=== PATIENT | female | born 1940 | race Caucasian/White ===

== ENCOUNTER 2017-06-21 14:16 | Observation (INO) ==
[2017-06-21] MEDS ORDERED: 0.9 % Sodium Chloride 1,000 ML IVC ONE (15:17)
[2017-06-21] MEDS ORDERED: *HR* FentaNYL (PF) 100 MCG/2 ML VIAL IVP ONE ×2 (15:18→17:02)
[2017-06-21] MEDS ORDERED: Ondansetron 4 MG/2 ML VIAL IVP ONE (15:19)
[2017-06-21] MEDS ORDERED: Ondansetron 4 MG/2 ML VIAL ONE (15:24)
--- NOTE | 2017-06-21 15:45 | Emergency Department Note ---
Disposition Clinical Impression: Weakness Fall Qualifiers: Encounter type: initial encounter Qualified Code(s): W19.XXXA - Unspecified fall, initial encounter Disposition: Admitted As Inpatient Condition: Fair Time of Disposition: 17:41 General Adult HPI - General Chief complaint: ED Fall Stated complaint: Fall Time Seen by Provider: 06/21/17 15:09 Source: patient, family Mode of arrival: wheelchair Limitations: no limitations Nursing Notes Reviewed: Yes Vital Signs Reviewed: Yes - History of Present Illness HPI Narrative: Patient is a 77-year-old female with a past medical history of atrial fibrillation with pacemaker, stroke, DVT, hypertension, hyperlipidemia, diabetes presenting to the emergency department for the complaint of a fall and double vision. The patient states that prior to arrival to the emergency department she was walking into a steak house and there was uneven pavement and she fell backwards onto her left side. She denies any symptoms prior to the fall and states that she did not lose consciousness. She denies head or neck injury. She states after the fall she went into the restaurant and she felt weaker than normal and also experienced double vision. When asked about her double vision the patient states that this sometimes a chronic issue and it comes and goes. At this time her main pain is in her left posterior back around her thoracic and lumbar region. The patient is on Eliquis. Pain Scale: 10 - Related Data Home Medications Medication Instructions Recorded Confirmed Apixaban [Eliquis] 5 mg PO BID 06/21/17 06/21/17 Cholecalciferol (D-3) [Vitamin D] 1,000 unit PO DAILY 06/21/17 06/21/17 Donepezil [Aricept] 10 mg PO HS 06/21/17 06/21/17 Ezetimibe [Ezetimibe] 10 mg PO DAILY 06/21/17 06/21/17 Furosemide [Lasix] 20 mg PO DAILY PRN 06/21/17 06/21/17 Gabapentin [Neurontin] 400 mg PO QPM 06/21/17 06/21/17 Gabapentin [Neurontin] 800 mg PO QAM 06/21/17 06/21/17 Glimepiride [Amaryl] 4 mg PO QAM 06/21/17 06/21/17 LORazepam [Ativan] 0.5 mg PO DAILY PRN 06/21/17 06/21/17 LORazepam [Ativan] 0.5 mg PO QAM 06/21/17 06/21/17 Lisinopril [Lisinopril] 2.5 mg PO DAILY 06/21/17 06/21/17 Metoprolol Tartrate [Metoprolol 50 mg PO BID 06/21/17 06/21/17 Tartrate] Naproxen [Naprosyn] 250 mg PO BID PRN 06/21/17 06/21/17 Ranitidine HCl [Zantac] 150 mg PO DAILY PRN 06/21/17 06/21/17 Rosuvastatin Calcium [Rosuvastatin 40 mg PO HS 06/21/17 06/21/17 Calcium] Sertraline [Zoloft] 100 mg PO DAILY 06/21/17 06/21/17 Sitagliptin Phosphate [Januvia] 50 mg PO DAILY 06/21/17 06/21/17 Venlafaxine HCl [Venlafaxine HCl 75 mg PO DAILY 06/21/17 06/21/17 ER] Verapamil HCl 360 mg PO DAILY 06/21/17 Xyzal 5 mg PO DAILY 06/21/17 06/21/17 Allergies Allergy/AdvReac Type Severity Reaction Status Date / Time Sulfa (Sulfonamide Allergy Hives Verified 06/21/17 14:51 Antibiotics) All systems ED: reviewed and negative except as stated. Review of Systems: As Per HPI Constitutional: Reports: other (Feeling fatigued a sports/P fall). Denies: fever, weakness Eyes: Denies: eye pain, eye discharge, vision change Cardiovascular: Denies: chest pain, palpitations, dyspnea on exertion Respiratory: Denies: cough, dyspnea Gastrointestinal: Denies: abdominal pain, nausea, vomiting, diarrhea Genitourinary: Denies: urgency, dysuria Musculoskeletal: Reports: other (Pain over the left posterior rib cage in the thoracic and lumbar region). Denies: back pain, neck pain Integumentary: Denies: rash, lesions Neurological: Reports: other (Blurred vision). Denies: headache, weakness, numbness Hematological/Lymphatic: Denies: easy bleeding Past Medical History - Past Medical History Attestation: Yes The following information was validated with the patient. Medical history: Reports: atrial fibrillation, CVA, DVT, diabetes, GERD, hyperlipidemia, hypertension Psychiatric history: Reports: no psych history - Social History Smoking Status: Never smoker Smokeless Tobacco Status: No Alcohol use: Reports: none Drug use: Reports: none Physical Exam Patient is a 77-year-old female in no acute distress when at rest. She is AO 3. - General Limitations: no limitations General appearance: alert, in no apparent distress - Head Head exam: atraumatic, normocephalic, normal inspection - Eye Eye exam: Present: normal appearance, PERRL, EOMI - ENT ENT exam: normal exam, normal oropharynx, mucous membranes dry - Neck Neck exam: Present: normal inspection, full ROM, trachea midline - Chest Chest inspection: Present: normal inspection, symmetric chest wall rise, tenderness (To the left posterior rib cage over the thoracic region. Possible crepitance felt. ). Absent: rash - Respiratory Respiratory exam: Present: normal lung sounds bilaterally. Absent: respiratory distress, wheezes, stridor, accessory muscle use - Cardiovascular Cardiovascular exam: Present: regular rate, normal rhythm, normal heart sounds, +S1, +S2 - Abdominal Exam Abdominal exam: Present: soft, Non-Tender, normal bowel sounds - Extremities Exam Extremities exam: Present: full ROM, normal capillary refill, pedal edema ( Bilateral 1+ pitting edema). Absent: tenderness - Expanded Lower Extremity Exam Hip/Pelvis exam: Present: normal inspection, full ROM. Absent: tenderness, ecchymosis, deformity Upper leg exam: Present: normal inspection, full ROM Knee exam: Present: normal inspection, full ROM Lower leg exam: Present: normal inspection, full ROM Ankle exam: Present: normal inspection, full ROM Foot/toe exam: Present: normal inspection, full ROM Neurovascular/Tendon exam: Present: normal capillary refill. Absent: pulse deficit, motor deficit, sensory deficit - Back Exam Back exam: Present: normal inspection, full ROM. Absent: tenderness - Neurological Exam Neurological exam: Present: alert, oriented X3 - Psychiatric Psychiatric exam: Present: normal affect, normal mood - Skin Skin exam: Present: warm, dry, intact, normal color Course Course Narrative: Patient's presenting for a fall she had a CT scan done of her head and neck chest and abdomen. The CT resulted showing 2 rib fractures on the left posterior lateral side that were nondisplaced. Otherwise patient's lab work was unremarkable except for she did have some acute kidney injury. Discussed with the patient and patient's family admitting her for further evaluation and workup since she has had ongoing weakness, family states that prefer she be admitted. Otherwise cardiac workup was performed and that was essentially negative. Vital Signs Temperature 98.6 F 06/21/17 14:49 Pulse Rate 65 06/21/17 14:49 Respiratory Rate 18 06/21/17 14:49 Blood Pressure 82/52 06/21/17 14:49 O2 Sat by Pulse Oximetry 94 06/21/17 14:49 Temperature 98.2 F 06/22/17 07:20 Pulse Rate 91 06/22/17 07:20 Respiratory Rate 16 06/22/17 07:20 Blood Pressure 120/75 06/22/17 07:20 O2 Sat by Pulse Oximetry 98 06/22/17 07:20 Oxygen Delivery Oxygen Delivery Nasal Cannula Medical Decision Making - Medical Records Medical records reviewed: Yes I reviewed the patient's medical records. - Lab Data Lab results reviewed: Yes I reviewed the patient's lab results. Result diagrams: 06/22/17 03:27 06/22/17 03:27 Lab Results 06/21/17 06/21/17 06/21/17 Range/Units 16:33 16:33 16:33 WBC 6.0 (4.3-11.1) K/mcL RBC 4.50 (3.82-4.97) M/mcL Hgb 12.9 (11.5-15.4) g/dL Hct 39.9 (35.3-44.9) % MCV 88.7 (83.0-100.0) fL MCH 28.7 (28.0-33.3) pg MCHC 32.3 (31.6-35.5) g/dL RDW 14.1 (11.5-14.5) % Plt Count 172 (140-400) K/mcL MPV 11.5 (9.4-12.4) fL Immature Gran % 0.2 (0-4) % Seg Neutrophils % 71.5 % Lymphocytes % 19.8 % Monocytes % 7.0 % Eosinophils % 1.0 % Basophils % 0.5 % Neutrophils # 4.3 (1.6-8.9) K/mcL Lymphocytes # 1.2 (0.6-4.6) K/mcL Monocytes # 0.4 (0.0-1.3) K/mcL Eosinophils # 0.1 (0.0-0.6) K/mcL Basophils # 0.0 (0.0-0.2) K/mcL Sodium 136 (136-145) mEq/L Potassium 4.1 (3.5-5.1) mEq/L Chloride 103 (98-107) mEq/L Carbon Dioxide 28 (23-29) mEq/L BUN 20 (8-23) mg/dL Creatinine 1.25 H (0.60-1.20) mg/dL Est GFR ( Amer) 50 L (> 60) Est GFR (Non-Af Amer) 42 L (> 60) BUN/Creatinine Ratio 16 (6-26) Glucose 157 H (70-105) mg/dL Calculated Osmolality 288 (280-300) Calcium 8.9 (8.6-10.3) mg/dL Troponin I < 0.03 (< 0.04) ng/mL TSH 1.515 (0.340-5.600) mcIU/mL - Radiology Data Radiology results reviewed: Yes I reviewed the patient's radiology results. Abdomen/Pelvis CTA 06/21/17 15:11 IMPRESSION: 1. No evidence of acute injury in the abdomen or pelvis. 2. Unchanged dilation of the common bile duct, likely related to prior cholecystectomy. 3. Scattered pneumobilia is present which has been present on prior exams and could be related to a sphincterotomy. 4. Mild diverticulosis. 5. Coronary atherosclerosis. D/ / 06/21/2017 16:25:57 Panfilo Bright MD / [facility] Interpreting Provider: Panfilo Bright MD Cervical Spine CT 06/21/17 15:11 IMPRESSION: No acute abnormality of the cervical spine. Mild spondylosis at C5-C6. D/ / Chato Jackman MD / Chato Jackman MD Interpreting Provider: Chato Jackman MD Chest CTA 06/21/17 15:11 IMPRESSION: 1. Negative evaluation for acute aortic injury. 2. Posterior left 8th and 10th megaly displaced rib fractures. 3. Please refer to dedicated CT angiography of the abdomen and pelvis for further findings. D/ / Tad Quinn / Tda Quinn Interpreting Provider: Tad Quinn Head CT 06/21/17 15:11 IMPRESSION: No acute intracranial abnormality with chronic ischemic changes as described. D/ / Giselle Perez MD / Giselle Perez MD Interpreting Provider: Giselle Perez MD - EKG Data EKG #1 EKG attestation: Yes I reviewed and interpreted this EKG. EKG results narrative: Patient EKG done at 16:29 shows atrial fibrillation with aberrant conduction. Rate of 66 bpm. Normal axis. No signs of ST elevation or depressions or Q waves present. Interpretation: nonspecific ST-T wave changes Attestation Statement - Attestation Attestation: I examined this patient and my medical decision-making was reviewed with the Resident Physician. I agree with the documented findings, disposition and treatment plan as described except to the extent set forth below. 77 yo F presents after a fall. Unclear whether it was near syncopal or mechanical however pt is hypotensive upon arrival. CT head, Cspine do not reveal acute fracture or ICH. Pt has rib fractures present on CTA chest but no other surgical pathology found. +mild elevation of creatinine. Pt will be admitted for near syncopal event.
[2017-06-21 17:18] LABS: Basophils % 0.5 %; Eosinophils # 0.1 K/mcL (0.0-0.6); Hematocrit 39.9 % (35.3-44.9); Hemoglobin 12.9 g/dL (11.5-15.4); Immature Granulocytes % 0.2 % (0-4); Lymphocytes # 1.2 K/mcL (0.6-4.6); Lymphocytes % 19.8 %; Mean Corpuscular HGB Conc 32.3 g/dL (31.6-35.5); Mean Corpuscular Hemoglobin 28.7 pg (28.0-33.3); Mean Corpuscular Volume 88.7 fL (83.0-100.0); Mean Platelet Volume 11.5 fL (9.4-12.4); Monocytes # 0.4 K/mcL (0.0-1.3); Neutrophils # 4.3 K/mcL (1.6-8.9); Platelet Count 172 K/mcL (140-400); Red Cell Distribution Width 14.1 % (11.5-14.5); Segmented Neutrophils % 71.5 %
[2017-06-21 17:20] LABS: Calcium 8.9 mg/dL (8.6-10.3); Potassium 4.1 mEq/L (3.5-5.1)
[2017-06-21 17:33] LABS: Thyroid Stimulating Hormone 1.515 mcIU/mL (0.340-5.600)
[2017-06-21] MEDS ORDERED: Ondansetron 4 MG/2 ML VIAL IVP PRN (19:14)
[2017-06-21] MEDS ORDERED: Naloxone 0.4 MG/ML INJ IVP PRN (19:16)
[2017-06-21] MEDS ORDERED: 0.9 % Sodium Chloride 1,000 ML IVC SCH (19:30)
--- NOTE | 2017-06-21 19:33 | Internal Med History&Physical ---
<Ramírez Alba - Last Filed: 06/21/17 21:52> Date of Encounter: 06/21/17 Time of Encounter: 19:31 Assessment and Plan (1) Fall Current visit: Yes Status: Acute The patient reports she fell this afternoon while out dining at a restaurant. She denies any syncope or near syncope. She denies hitting her head. Upon arrival to [facility] ED she was found to be hypotensive. Hemodynamic status improved with a 2 L fluid bolus. It appears she may have been a fluid depleted. -0.9% normal saline at 75 mL per hour 2 L -Orthostatic vitals -Up with assist only -CK now -[facility] ED, BMP in the a.m. -Continuous telemetry, SPO2 monitoring Qualifiers: Encounter type: initial encounter Qualified Code(s): W19.XXXA - Unspecified fall, initial encounter (2) Left rib fracture Current visit: Yes Status: Acute Fracture left posterior 8-10 ribs status post fall this afternoon. Patient continuing to report pain. -Pain management with oxycodone Qualifiers: Qualified Code(s): S22.32XA - Fracture of one rib, left side, initial encounter for closed fracture (3) A-fib Current visit: Yes Status: Acute A-fib per EKG rate control. RRR, S1, S2 per auscultation with a systolic murmur. Family to bring medication list. Patient unsure of home medications. Will restart rate control meds as list is updated Qualifiers: Atrial fibrillation type: unspecified Qualified Code(s): I48.91 - Unspecified atrial fibrillation (4) Diabetes Current visit: Yes Status: Acute AC/HS accucheck Takes oral hypoglycemics and is at Risk for hypoglycemia should she develop an KAYLA s/p fall, holding insulin for now should she become hyperglycemic plan to start low sliding scale insulin coverage. -diabetic diet -D5 0.9% saline at 75ml/hr Qualifiers: Diabetes mellitus type: type 2 Diabetes mellitus fdc insulin use: unspecified intermediate manager insulin use status Diabetes mellitus complication status : with unspecified complications Qualified Code(s): E11.8 - Type 2 diabetes mellitus with unspecified complications (5) Weakness Current visit: Yes Status: Acute s/p fall this afternoon. She is reporting pain in left posterior ribs 8-10 (6) DVT prophylaxis Current visit: Yes Status: Acute Resume [facility] Internal Medicine - H&P: HPI Chief complaint: fall today resulting in rib fracture, pain, volume depleted Admitted From: Home Plans for Post Hospital Care: Home History of present illness: Ms. Koo is a 77 year old female with a PMH of atrial fibrillation, CVA, DVT, diabetes, GERD, hyperlipidemia, and hypertension. She presents to [facility] ED today status post fall while out eating lunch. The patient reports that she was walking and lost her balance and fell backwards and on her left side. The only symptoms she admits prior to the fall are mild blurred vision but she reports has having this is chronic. She denies any generalized weakness, chest pain, shortness of breath, tachycardia, palpitations, syncope. She denies hitting her head. She is on eliquis for atrial fibrillation. She states that she went into the restaurant to eat after the fall of began to feel weaker and decided to come to [facility] ED. Upon presentation to the emergency department was complaining of left posterior back pain in the thoracolumbar region was found to have rib fractures via CTA of the chest. Additionally, she was noted to be hypotensive on arrival. Hemodynamic status improved with a saline bolus. She appears to be volume depleted. Past Med Surg Social Fam HX - Past Medical History Medical history: atrial fibrillation, CVA, DVT, diabetes, GERD, hyperlipidemia, hypertension Psychiatric history: no psych history - Social History Smoking Status: Never smoker Smokeless Tobacco Status: No Alcohol use: none Drug use: none - Family History Father Cause of : Heart attack Hx Family Cardiac Disorders: Yes Mother Living Status: Cause of : Heart attack Hx Family Cardiac Disorders: Yes - Additional Family History Additional family history: Noncontributory Internal Medicine - H&P: Meds Apixaban [Eliquis] 5 mg PO BID 06/21/17 [History] Cholecalciferol (D-3) [Vitamin D] 1,000 unit PO DAILY 06/21/17 [History] Donepezil [Aricept] 10 mg PO HS 06/21/17 [History] Ezetimibe [Ezetimibe] 10 mg PO DAILY 06/21/17 [History] Furosemide [Lasix] 20 mg PO DAILY PRN 06/21/17 [History] Gabapentin [Neurontin] 400 mg PO QPM 06/21/17 [History] Gabapentin [Neurontin] 800 mg PO QAM 06/21/17 [History] Glimepiride [Amaryl] 4 mg PO QAM 06/21/17 [History] LORazepam [Ativan] 0.5 mg PO DAILY PRN 06/21/17 [History] LORazepam [Ativan] 0.5 mg PO QAM 06/21/17 [History] Lisinopril [Lisinopril] 2.5 mg PO DAILY 06/21/17 [History] Metoprolol Tartrate [Metoprolol Tartrate] 50 mg PO BID 06/21/17 [History] Naproxen [Naprosyn] 250 mg PO BID PRN 06/21/17 [History] Ranitidine HCl [Zantac] 150 mg PO DAILY PRN 06/21/17 [History] Rosuvastatin Calcium [Rosuvastatin Calcium] 40 mg PO HS 06/21/17 [History] Sertraline [Zoloft] 100 mg PO DAILY 06/21/17 [History] Sitagliptin Phosphate [Januvia] 50 mg PO DAILY 06/21/17 [History] Venlafaxine HCl [Venlafaxine HCl ER] 75 mg PO DAILY 06/21/17 [History] Verapamil HCl 360 mg PO DAILY 06/21/17 [History] Xyzal 5 mg PO DAILY 06/21/17 [History] 3 Allergy/AdvReac Type Severity Reaction Status Date / Time Sulfa (Sulfonamide Allergy Hives Verified 06/21/17 14:51 Antibiotics) All Systems PM: A 10-system review of systems was performed and is negative for pertinent findings except as documented above in the HPI. - Constitutional Constitutional: falls - EENT Eyes: blurry vision (reports intermittet blurred vision that is chronic) - Cardiovascular Cardiovascular ROS IM: no chest pain, no diaphoresis, no dyspnea, no irregular heart rhythm, no lightheadedness, no palpitations, no syncope - Respiratory Respiratory: no cough, no dyspnea, no wheezing, no excessive phlegm production - Gastrointestinal Gastrointestinal: no abdominal pain, no diarrhea, no hematemesis, no hematochezia, no melena, no nausea, no vomiting - Genitourinary Genitourinary: no change in urinary stream, no dysuria, no flank pain, no hematuria - Musculoskeletal Additional comments: muscle and rib pain - Integumentary Additional comments: bruising on left palm - Neurological Neurological ROS: no abnormal gait, no dizziness, no numbness, no tingling, no vertigo, no weakness Additional comments: falls - Constitutional Vitals: Temp Pulse Resp BP Pulse Ox 98.1 F 67 18 130/84 98 06/21/17 19:01 06/21/17 19:01 06/21/17 19:01 06/21/17 19:01 06/21/17 19:01 General appearance: Present: cooperative, A&O X 3, no acute distress, answers questions appropriately - Head Head exam: Present: atraumatic, normocephalic - Eye Eye exam: Present: PERRL Pupils: Present: PERRL - Neck Neck exam general surgery: Present: supple, trachea midline. Absent: lymphadenopathy - Respiratory Respiratory exam: Present: CTAB. Absent: respiratory distress, rhonchi, wheezes , tachypnea - Cardiovascular Cardiovascular exam: Present: RRR, +S1, +S2. Absent: diastolic murmur, gallop, rubs, systolic murmur - GI/Abdominal GI/Abdominal exam: Present: normal bowel sounds, soft, no peritoneal signs. Absent: distended, tenderness - Extremities Exam Extremities exam: Present: warm, radial pulses palpable and symmetrical. Absent : calf tenderness, cyanotic, pedal edema - Back Exam Back exam: Present: tenderness. Absent: normal inspection Additional comments: Tenderness along left posterior 8-10 ribs and extending s/p fall. CT shows fractures in this area as well. See imaging notes - Neurological Exam Neurological exam: Present: alert, oriented X3. Absent: facial droop, speech deficit - Skin Skin exam: Present: dry, intact Additional comments: bruising on left palm s/p fall Internal Med - H&P Results - Labs CBC & Chem 7: 06/21/17 16:33 06/21/17 16:33 - EKG Data -: EKG Interpreted by Myself - EKG Data EKG comments: 06/21/17 19:56 a-fib - Impressions Impressions Abdomen/Pelvis CTA 06/21/17 15:11 IMPRESSION: 1. No evidence of acute injury in the abdomen or pelvis. 2. Unchanged dilation of the common bile duct, likely related to prior cholecystectomy. 3. Scattered pneumobilia is present which has been present on prior exams and could be related to a sphincterotomy. 4. Mild diverticulosis. 5. Coronary atherosclerosis. D/ / 06/21/2017 16:25:57 Panfilo Bright MD / [facility] Interpreting Provider: Panfilo Bright MD Cervical Spine CT 06/21/17 15:11 IMPRESSION: No acute abnormality of the cervical spine. Mild spondylosis at C5-C6. D/ / Chato Jackman MD / Chato Jackman MD Interpreting Provider: Chato Jackman MD Chest CTA 06/21/17 15:11 IMPRESSION: 1. Negative evaluation for acute aortic injury. 2. Posterior left 8th and 10th megaly displaced rib fractures. 3. Please refer to dedicated CT angiography of the abdomen and pelvis for further findings. D/ / Tad Quinn / Tad Quinn Interpreting Provider: Tad Quinn Head CT 06/21/17 15:11 IMPRESSION: No acute intracranial abnormality with chronic ischemic changes as described. D/ / Giselle Perez MD / Giselle Perez MD Interpreting Provider: Giselle Perez MD - VTE Reasons for not Prescribing Prophylaxis: Not indicated-Anticoagulated or INR therapeutic <Ej Kevin - Last Filed: 06/21/17 23:35> Date of Encounter: 06/21/17 Time of Encounter: 20:00 - Constitutional Vitals: Temp Pulse Resp BP Pulse Ox 98.1 F 67 18 130/84 98 06/21/17 19:01 06/21/17 19:01 06/21/17 19:01 06/21/17 19:01 06/21/17 19:01 General appearance: Present: A&O X 3, no acute distress - Head Head exam: Present: atraumatic - Eye Eye exam: Present: EOMI, normal appearance, PERRL. Absent: scleral icterus - Neck Neck exam general surgery: Present: supple - Expanded Neck Exam Neck exam: Absent: carotid bruit - Respiratory Respiratory exam: Present: chest wall tenderness (left lateral ribs -- fractures ), CTAB. Absent: rales, rhonchi, wheezes - Cardiovascular Cardiovascular exam: Present: RRR, +S1, +S2. Absent: diastolic murmur, systolic murmur - GI/Abdominal GI/Abdominal exam: Present: soft. Absent: tenderness - Extremities Exam Extremities exam: Present: warm, radial pulses palpable and symmetrical. Absent : pedal edema - Neurological Exam Neurological exam: Present: alert, CN II-XII intact, oriented X3, no focal deficits - Skin Skin exam: Present: dry, warm Internal Med - H&P Results - Labs CBC & Chem 7: 06/21/17 16:33 06/21/17 16:33 Labs: Cardiac Enzymes 06/21/17 06/21/17 Range/Units 19:35 21:00 Troponin I < 0.03 < 0.03 (< 0.04) ng/mL - Attending Attestation I discussed the patient [facility] [place], PMH, ROS, lab data, and exam findings with Ramírez Alba CNP. I then saw and examined patient independently as well. Patient is quite sore and tender along her left ribs. She denies any syncope. She did feel somewhat dizzy and lightheaded prior to her fall. I suspect it was medication related (BP meds) and/or rhythm. We will hold her BP meds overnight and monitor her on telemetry. I agree with continuing Lopressor though. We will also watch for hypoglycemia given her diabetes, oral diabetic agents, and acute kidney injury. Other than my comments above and noted exam findings, I agree with Ramírez's assessment and plan.
[2017-06-21] MEDS ORDERED: Dextrose Gel 15 GM/37.5 ML TUBE PO PRN ×2 (19:52)
[2017-06-21] MEDS ORDERED: D5% in Water 1,000 ML IVC PRN (19:52)
[2017-06-21] MEDS ORDERED: *HR* Dextrose 50 % in Water (Syg) 50 ML SYRINGE IVP PRN (19:52)
[2017-06-21 19:58] LABS: INR 2.1; Prothrombin Time 22.8 Seconds (9.4-12.1)
[2017-06-21] MEDS ORDERED: D5% in 0.9% NACL 1,000 ML IVC SCH (20:00)
[2017-06-21 20:01] LABS: Activated Partial Thrombo Time 33.4 Seconds (26.0-36.0)
[2017-06-21 20:09] LABS: Troponin I < 0.03 ng/mL (< 0.04)
[2017-06-21] MEDS: *HR* OxyCODONE Immed Rel 5 MG TABLET PO PRN (21:03)
[2017-06-21] MEDS ORDERED: *HR* LORazepam 0.5 MG TABLET PO PRN (21:46)
[2017-06-21 21:50] LABS: Creatine Kinase 33 Units/L (30-223)
[2017-06-21] MEDS: Apixaban 5 MG TABLET PO SCH (22:10)
[2017-06-21] MEDS: *HR* OxyCODONE/APAP 5/325 TABLET PO PRN (23:53)
[2017-06-22] MEDS: *HR* OxyCODONE Immed Rel 5 MG TABLET PO PRN ×3 (03:27→19:46)
[2017-06-22 05:01] LABS: Basophils % 0.3 %; Eosinophils % 0.6 %; Hematocrit 38.8 % (35.3-44.9); Hemoglobin 12.3 g/dL (11.5-15.4); Immature Granulocytes % 0.1 % (0-4); Lymphocytes # 1.5 K/mcL (0.6-4.6); Lymphocytes % 22.3 %; Mean Corpuscular HGB Conc 31.7 g/dL (31.6-35.5); Mean Corpuscular Hemoglobin 28.9 pg (28.0-33.3); Mean Corpuscular Volume 91.1 fL (83.0-100.0); Monocytes # 0.5 K/mcL (0.0-1.3); Neutrophils # 4.7 K/mcL (1.6-8.9); Platelet Count 152 K/mcL (140-400); Red Blood Count 4.26 M/mcL (3.82-4.97); Segmented Neutrophils % 69.7 %
[2017-06-22 05:17] LABS: Alanine Aminotransferase 10 Units/L (7-52); Albumin 3.6 g/dL (3.5-5.7); Albumin/Globulin Ratio 1.4 (1.1-2.2); Alkaline Phosphatase 55 Units/L (34-104); Aspartate Amino Transferase 15 Units/L (13-39); BUN/Creatinine Ratio 19 (6-26); Bilirubin,Total 0.5 mg/dL (0.3-1.0); Blood Urea Nitrogen 18 mg/dL (8-23); Calcium 8.9 mg/dL (8.6-10.3); Carbon Dioxide 26 mEq/L (23-29); Chloride 108 mEq/L (98-107); Globulin 2.5 g/dL (2.4-3.5); Glucose 133 mg/dL (70-105); Osmolality,Calculated 292 (280-300); Potassium 4.5 mEq/L (3.5-5.1); Sodium 139 mEq/L (136-145); Total Protein 6.1 g/dL (6.4-8.9); eGFR For African Americans > 60 (> 60); eGFR For Non-African Americans 56 (> 60)
--- NOTE | 2017-06-22 07:27 | Electrocardiograph Report ---
[place] [id number] Test Date: 2017-06-21 Pat Name: Ranjana Koo Department: 104 Room: 3B46 Gender: F Gut [employer]er: EKP : 1940 Requested By: Matthew Correa Order Number: [id number] Reading MD: Asa Contreras MD Measurements Intervals Basile Rate: 66 P: MO: 0 QRS: 3 QRSD: 96 T: 55 QT: 426 QTc: 440 Interpretive Statements ATRIAL FIBRILLATION WITH ABERRANT CONDUCTION OR VENTRICULAR PREMATURE COMPLEXES ABNORMAL RHYTHM ECG Electronically Signed On 06-22-2017 7:25:27 EDT by Asa Contreras MD
[2017-06-22] MEDS: Venlafaxine XR (24 HR) 75 MG CAP.ER.24H PO SCH (08:20)
[2017-06-22] MEDS: *HR* OxyCODONE/APAP 5/325 TABLET PO PRN (08:20)
[2017-06-22] MEDS: Cholecalciferol (D-3) 1,000 UNIT TABLET PO SCH (08:20)
[2017-06-22] MEDS: *HR* LORazepam 0.5 MG TABLET PO SCH (08:20)
[2017-06-22] MEDS: Apixaban 5 MG TABLET PO SCH ×2 (08:20→21:28)
[2017-06-22] MEDS: (Ezetimibe [Ezetimibe] 10 MG) PO SCH (08:21)
[2017-06-22] MEDS: (Xyzal 5 MG) PO SCH (08:21)
--- NOTE | 2017-06-22 10:35 | Internal Med Progress Note ---
Date of Encounter: 06/22/17 Time of Encounter: 10:35 - Assessment and plan (1) Fall Current Visit: Yes Status: Acute Assessment and plan: 1 patient fell yesterday while dining at a restaurant. CT of head was negative she is found to be hypotensive and was given IV fluids she was given IV fluids overnight vital signs seem to be stable. Hold diuretic for now Orthostatic vitals Fall precautions Continuous telemetry Consult PT and OT-patient admits that she has difficulty ambulating Awaiting results of echo as well as carotid Dopplers-rule out syncope Qualifiers: Encounter type: initial encounter Qualified Code(s): W19.XXXA - Unspecified fall, initial encounter (2) Weakness Current Visit: Yes Status: Acute Assessment and plan: We will consult PT and OT for evaluation Fall precautions (3) A-fib Current Visit: Yes Status: Acute Assessment and plan: Presently rate controlled-attempting to contact family members to clarify verapamil dosage Qualifiers: Atrial fibrillation type: unspecified Qualified Code(s): I48.91 - Unspecified atrial fibrillation (4) Diabetes Current Visit: Yes Status: Acute Assessment and plan: Accu-Cheks before meals at bedtime with sliding scale insulin Qualifiers: Diabetes mellitus type: type 2 Diabetes mellitus 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 insulin 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: unspecified 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 insulin use status Diabetes mellitus complication status : with unspecified complications Qualified Code(s): E11.8 - Type 2 diabetes mellitus with unspecified complications (5) DVT prophylaxis Current Visit: Yes Status: Acute Assessment and plan: Patient is on Eliquis (6) Left rib fracture Current Visit: Yes Status: Acute Assessment and plan: Continue with oxycodone, Percocet, lidocaine patch Incentive spirometry Consult PT and OT Qualifiers: Encounter type: initial encounter Rib fracture type: multiple ribs Fracture type: closed Qualified Code(s): S22.42XA - Multiple fractures of ribs , left side, initial encounter for closed fracture - Time Spent With Patient less than 15 minutes - Subjective Interval history: Presently patient denies any chest pain or shortness of breath dizziness or lightheadedness. Patient does admit that she does not ambulate well -she does have rib fractures we will consult PT and OT - Constitutional Vitals: Temp Pulse Resp BP Pulse Ox 98.2 F 91 16 120/75 98 06/22/17 07:20 06/22/17 07:20 06/22/17 07:20 06/22/17 07:20 06/22/17 07:20 General appearance: Present: A&O X 3, no acute distress - Head Head exam: Present: atraumatic, normocephalic - Eye Eye exam: Present: PERRL, conjuntiva pink, sclera anicteric Pupils: Present: PERRL - Neck Neck exam general surgery: Present: supple, trachea midline. Absent: lymphadenopathy - Respiratory Respiratory exam: Present: CTAB. Absent: accessory muscle use, rales, rhonchi, wheezes - Cardiovascular Cardiovascular exam: Present: RRR, +S1, +S2. Absent: diastolic murmur, gallop, rubs, systolic murmur - GI/Abdominal GI/Abdominal exam: Present: normal bowel sounds, soft, no peritoneal signs. Absent: distended, tenderness - Extremities Exam Extremities exam: Present: warm, radial pulses palpable and symmetrical. Absent : calf tenderness, cyanotic, pedal edema - Neurological Exam Neurological exam: Present: CN II-XII intact, oriented X3, no focal deficits. Absent: pronater drift, facial droop, speech deficit - Skin Skin exam: Present: dry, intact Internal Medicine: Result - Labs CBC & Chem 7: 06/22/17 03:27 06/22/17 03:27 Labs: Short CBC 06/22/17 Range/Units 03:27 WBC 6.7 (4.3-11.1) K/mcL Hgb 12.3 (11.5-15.4) g/dL Hct 38.8 (35.3-44.9) % Plt Count 152 (140-400) K/mcL Neutrophils # 4.7 (1.6-8.9) K/mcL BMP 06/22/17 03:27 Sodium 139 Potassium 4.5 Chloride 108 H Carbon Dioxide 26 BUN 18 Creatinine 0.97 Glucose 133 H Calcium 8.9 Cardiac Enzymes 06/21/17 06/21/17 06/22/17 Range/Units 19:35 21:00 03:27 Troponin I < 0.03 < 0.03 < 0.03 (< 0.04) ng/mL Liver Function 06/22/17 Range/Units 03:27 Total Bilirubin 0.5 (0.3-1.0) mg/dL AST 15 (13-39) Units/L ALT 10 (7-52) Units/L Alkaline Phosphatase 55 (34-104) Units/L Albumin 3.6 (3.5-5.7) g/dL - ABG Interpretation ABG results: PT/INR, D-dimer PT 22.8 Seconds (9.4-12.1) H 06/21/17 19:35 - VTE Reasons for not Prescribing Prophylaxis: Not indicated-Anticoagulated or INR therapeutic Consult Discharge Plan - Plan Referrals: Rodri Marques DO [Primary Care Provider] -
[2017-06-22] MEDS: 0.9 % Sodium Chloride 1,000 ML IVC SCH (11:28)
[2017-06-22] MEDS: Insulin LISPRO 300 UNITS/3 ML VIAL SQ SCH ×2 (17:00→21:31)
[2017-06-23] MEDS: Famotidine 20 MG TABLET PO PRN (01:33)
[2017-06-23] MEDS: 0.9 % Sodium Chloride 1,000 ML IVC SCH ×2 (01:37→19:55)
[2017-06-23] MEDS: *HR* OxyCODONE/APAP 5/325 TABLET PO PRN ×3 (01:37→17:52)
[2017-06-23 04:44] LABS: Basophils % 0.3 %; Eosinophils # 0.1 K/mcL (0.0-0.6); Eosinophils % 1.3 %; Immature Granulocytes % 0.3 % (0-4); Lymphocytes # 1.2 K/mcL (0.6-4.6); Lymphocytes % 18.4 %; Mean Corpuscular HGB Conc 31.7 g/dL (31.6-35.5); Mean Corpuscular Hemoglobin 29.1 pg (28.0-33.3); Mean Corpuscular Volume 91.7 fL (83.0-100.0); Mean Platelet Volume 11.5 fL (9.4-12.4); Monocytes # 0.5 K/mcL (0.0-1.3); Monocytes % 7.8 %; Neutrophils # 4.8 K/mcL (1.6-8.9); Platelet Count 143 K/mcL (140-400); Red Blood Count 4.47 M/mcL (3.82-4.97); Red Cell Distribution Width 14.2 % (11.5-14.5); Segmented Neutrophils % 71.9 %
[2017-06-23 04:53] LABS: BUN/Creatinine Ratio 16 (6-26); Blood Urea Nitrogen 13 mg/dL (8-23); Calcium 9.6 mg/dL (8.6-10.3); Carbon Dioxide 28 mEq/L (23-29); Chloride 108 mEq/L (98-107); Glucose 141 mg/dL (70-105); Osmolality,Calculated 290 (280-300); Potassium 4.8 mEq/L (3.5-5.1); Sodium 139 mEq/L (136-145); eGFR For African Americans > 60 (> 60); eGFR For Non-African Americans > 60 (> 60)
[2017-06-23] MEDS: (Ezetimibe [Ezetimibe] 10 MG) PO SCH (09:00)
[2017-06-23] MEDS: (Xyzal 5 MG) PO SCH (09:00)
[2017-06-23] MEDS: Cholecalciferol (D-3) 1,000 UNIT TABLET PO SCH (09:02)
[2017-06-23] MEDS: Insulin LISPRO 300 UNITS/3 ML VIAL SQ SCH ×4 (09:03→21:16)
[2017-06-23] MEDS: Apixaban 5 MG TABLET PO SCH ×2 (09:03→21:15)
[2017-06-23] MEDS: Venlafaxine XR (24 HR) 75 MG CAP.ER.24H PO SCH (09:03)
[2017-06-23] MEDS: Verapamil ER (24 HR) 180 MG TABLET.ER PO SCH (09:04)
[2017-06-23] MEDS: *HR* LORazepam 0.5 MG TABLET PO SCH (09:04)
--- NOTE | 2017-06-23 10:50 | Internal Med Progress Note ---
Date of Encounter: 06/23/17 Time of Encounter: 10:50 - Assessment and plan (1) Fall Current Visit: Yes Status: Acute Assessment and plan: 1 patient had a fall and was hypertensive on presentation she was given IV fluids and responded well. We will continue to hold her Lasix and lisinopril for now. Orthostatic vitals were negative CT of head was negative We will continue with fall precautions Continue cardiac telemetry PT and OT evaluate patient suggesting short-term rehabilitation Carotid Dopplers are within normal limits Cardiac echo shows EF of 55% atypical septal motion consistent with bundle branch block indeterminant diastolic function normal right ventricular structure and function mild to moderate mitral stenosis mean gradient 6 mmHg no evidence of pulmonary hypertension We will consult social worker health services for short-term placement rehabilitation Qualifiers: Encounter type: initial encounter Qualified Code(s): W19.XXXA - Unspecified fall, initial encounter (2) Weakness Current Visit: Yes Status: Acute Assessment and plan: Continue with PT and OT Fall precautions (3) A-fib Current Visit: Yes Status: Acute Assessment and plan: Controlled rate continue with verapamil as well as Eliquis Continuous cardiac monitoring Qualifiers: Atrial fibrillation type: unspecified Qualified Code(s): I48.91 - Unspecified atrial fibrillation (4) Diabetes Current Visit: Yes Status: Acute Assessment and plan: Accu-Cheks before meals HFO sign scale insulin Diabetic diet Qualifiers: Diabetes mellitus type: type 2 Diabetes mellitus 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 insulin use: unspecified correction insulin use status Diabetes mellitus complication status : with unspecified complications Qualified Code(s): E11.8 - Type 2 diabetes mellitus with unspecified complications (5) Left rib fracture Current Visit: Yes Status: Acute Assessment and plan: 1 posterior left eighth and 10th mildly displaced left rib fracture-continue with pain medication as well as lidocaine patch Encouraged patient to cough and deep breathe and splint Incentive spirometry Qualifiers: Encounter type: initial encounter Rib fracture type: multiple ribs Fracture type: closed Qualified Code(s): S22.42XA - Multiple fractures of ribs , left side, initial encounter for closed fracture (6) DVT prophylaxis Current Visit: Yes Status: Acute Assessment and plan: Eliquis - Time Spent With Patient less than 15 minutes - Subjective Interval history: Patient having difficulty moving and ambulating complains of rib pain pain is controlled with pain medication-PTOT consult suggesting short-term stay for rehabilitation. Encouraged patient to cough and deep breathe patient has weak ability to use SNS from a tree only able to pull 500 mL's. Encouraged patient to use incentive spirometry 10 times every hour while awake. - Constitutional Vitals: Temp Pulse Resp BP Pulse Ox 98.8 F 87 16 126/80 92 06/23/17 07:16 06/23/17 07:16 06/23/17 07:16 06/23/17 07:16 06/23/17 07:16 General appearance: Present: A&O X 3, no acute distress - Head Head exam: Present: atraumatic, normocephalic - Eye Eye exam: Present: PERRL, conjuntiva pink, sclera anicteric Pupils: Present: PERRL - Neck Neck exam general surgery: Present: supple, trachea midline. Absent: lymphadenopathy - Respiratory Respiratory exam: Present: CTAB. Absent: accessory muscle use, rales, rhonchi, wheezes - Cardiovascular Cardiovascular exam: Present: RRR, +S1, +S2. Absent: diastolic murmur, gallop, rubs, systolic murmur - GI/Abdominal GI/Abdominal exam: Present: normal bowel sounds, soft, no peritoneal signs. Absent: distended, tenderness - Extremities Exam Extremities exam: Present: warm, radial pulses palpable and symmetrical. Absent : calf tenderness, cyanotic, pedal edema - Neurological Exam Neurological exam: Present: CN II-XII intact, oriented X3, no focal deficits. Absent: pronater drift, facial droop, speech deficit - Skin Skin exam: Present: dry, intact Internal Medicine: Result - Labs CBC & Chem 7: 06/23/17 03:52 06/23/17 03:52 Labs: Short CBC 06/23/17 Range/Units 03:52 WBC 6.7 (4.3-11.1) K/mcL Hgb 13.0 (11.5-15.4) g/dL Hct 41.0 (35.3-44.9) % Plt Count 143 (140-400) K/mcL Neutrophils # 4.8 (1.6-8.9) K/mcL BMP 06/23/17 03:52 Sodium 139 Potassium 4.8 Chloride 108 H Carbon Dioxide 28 BUN 13 Creatinine 0.81 Glucose 141 H Calcium 9.6 - ABG Interpretation ABG results: PT/INR, D-dimer PT 22.8 Seconds (9.4-12.1) H 06/21/17 19:35 - VTE Reasons for not Prescribing Prophylaxis: Not indicated-Anticoagulated or INR therapeutic Consult Discharge Plan - Plan Referrals: Rodri Marques DO [Primary Care Provider] -
[2017-06-23] MEDS: *HR* OxyCODONE Immed Rel 5 MG TABLET PO PRN (21:15)
[2017-06-24] MEDS: Insulin LISPRO 300 UNITS/3 ML VIAL SQ SCH ×4 (08:13→21:54)
[2017-06-24] MEDS: *HR* LORazepam 0.5 MG TABLET PO SCH (08:28)
[2017-06-24] MEDS: Apixaban 5 MG TABLET PO SCH ×2 (08:28→21:53)
[2017-06-24] MEDS: Venlafaxine XR (24 HR) 75 MG CAP.ER.24H PO SCH (08:28)
[2017-06-24] MEDS: Cholecalciferol (D-3) 1,000 UNIT TABLET PO SCH (08:28)
[2017-06-24] MEDS: Verapamil ER (24 HR) 180 MG TABLET.ER PO SCH (08:28)
[2017-06-24] MEDS: *HR* OxyCODONE Immed Rel 5 MG TABLET PO PRN ×2 (08:28→15:46)
[2017-06-24] MEDS: (Ezetimibe [Ezetimibe] 10 MG) PO SCH (08:29)
[2017-06-24] MEDS: (Xyzal 5 MG) PO SCH (08:29)
[2017-06-24 09:08] LABS: Basophils % 0.7 %; Eosinophils # 0.1 K/mcL (0.0-0.6); Hemoglobin 12.5 g/dL (11.5-15.4); Immature Granulocytes % 0.7 % (0-4); Lymphocytes # 1.2 K/mcL (0.6-4.6); Mean Corpuscular HGB Conc 31.3 g/dL (31.6-35.5); Mean Corpuscular Hemoglobin 28.2 pg (28.0-33.3); Mean Corpuscular Volume 90.3 fL (83.0-100.0); Mean Platelet Volume 11.3 fL (9.4-12.4); Monocytes # 0.5 K/mcL (0.0-1.3); Monocytes % 7.5 %; Neutrophils # 4.3 K/mcL (1.6-8.9); Nucleated Red Blood Cells 0.3 /100 WBC (0); Platelet Count 144 K/mcL (140-400); Red Blood Count 4.43 M/mcL (3.82-4.97); Red Cell Distribution Width 14.1 % (11.5-14.5); Segmented Neutrophils % 71.1 %
[2017-06-24 09:58] LABS: BUN/Creatinine Ratio 15 (6-26); Blood Urea Nitrogen 11 mg/dL (8-23); Calcium 9.7 mg/dL (8.6-10.3); Carbon Dioxide 28 mEq/L (23-29); Chloride 106 mEq/L (98-107); Glucose 130 mg/dL (70-105); Osmolality,Calculated 289 (280-300); Sodium 139 mEq/L (136-145); eGFR For African Americans > 60 (> 60); eGFR For Non-African Americans > 60 (> 60)
[2017-06-24] MEDS: Famotidine 20 MG TABLET PO PRN (15:32)
--- NOTE | 2017-06-24 18:15 | Internal Med Progress Note ---
Date of Encounter: 06/24/17 Time of Encounter: 10:00 - Assessment and plan (1) Fall Current Visit: Yes Status: Acute Assessment and plan: Patient initially presented with a fall and she was hypotensive on presentation she was given IV fluids and responded well we did hold her lisinopril and Lasix orthostatic vitals were negative her blood pressure has been stable with systolic or than 100 Continue fall precautions PT OT has evaluated patient suggesting short-term rehabilitation. Patient has been accepted [facility] however we are awaiting preauthorization from insurance company Carotid Dopplers are within normal limits Cardiac echo shows EF of 55% atypical septal motion consistent with bundle branch block indeterminant diastolic function normal right ventricular structure and function mild to moderate mitral stenosis mean gradient 6 mmHg no evidence of pulmonary hypertension director of residential services have been consulted Qualifiers: Encounter type: initial encounter Qualified Code(s): W19.XXXA - Unspecified fall, initial encounter (2) Weakness Current Visit: Yes Status: Acute Assessment and plan: We will continue with PT and OT Fall precautions (3) A-fib Current Visit: Yes Status: Acute Assessment and plan: presently rate controlled will continue verapamil as well as [place] Continue cardiac monitoring Qualifiers: Atrial fibrillation type: unspecified Qualified Code(s): I48.91 - Unspecified atrial fibrillation (4) Diabetes Current Visit: Yes Status: Acute Assessment and plan: Accu-Cheks before meals at bedtime with sliding scale insulin Qualifiers: Diabetes mellitus type: type 2 Diabetes mellitus correction insulin use: unspecified emt intermediate insulin use status Diabetes mellitus complication status : with unspecified complications Qualified Code(s): E11.8 - Type 2 diabetes mellitus with unspecified complications (5) Left rib fracture Current Visit: Yes Status: Acute Assessment and plan: posterior left eighth and 10th mildly displaced left rib fracture-continue with pain medication as well as lidocaine patch Encouraged patient to cough and deep breathe and splint Incentive spirometry Continue with PT and OT Qualifiers: Encounter type: initial encounter Rib fracture type: multiple ribs Fracture type: closed Qualified Code(s): S22.42XA - Multiple fractures of ribs , left side, initial encounter for closed fracture (6) DVT prophylaxis Current Visit: Yes Status: Acute Assessment and plan: Eliquis - Subjective Interval history: Patient is sitting up in chair this a.m. drinking coffee. She has no complaints today has been working with PT OT tolerating well. We are still awaiting preauthorization of insurance in order for patient to go to [facility] for further rehabilitation - Constitutional Vitals: Temp Pulse Resp BP Pulse Ox 97.9 F 81 17 152/75 98 06/24/17 16:12 06/24/17 16:12 06/24/17 16:12 06/24/17 16:12 06/24/17 16:12 General appearance: Present: A&O X 3, no acute distress - Head Head exam: Present: atraumatic, normocephalic - Eye Eye exam: Present: PERRL, conjuntiva pink, sclera anicteric Pupils: Present: PERRL - Neck Neck exam general surgery: Present: supple, trachea midline. Absent: lymphadenopathy - Respiratory Respiratory exam: Present: CTAB. Absent: accessory muscle use, rales, rhonchi, wheezes - Cardiovascular Cardiovascular exam: Present: RRR, +S1, +S2. Absent: diastolic murmur, gallop, rubs, systolic murmur - GI/Abdominal GI/Abdominal exam: Present: normal bowel sounds, soft, no peritoneal signs. Absent: distended, tenderness - Extremities Exam Extremities exam: Present: warm, radial pulses palpable and symmetrical. Absent : calf tenderness, cyanotic, pedal edema - Neurological Exam Neurological exam: Present: CN II-XII intact, oriented X3, no focal deficits. Absent: pronater drift, facial droop, speech deficit - Skin Skin exam: Present: dry, intact Internal Medicine: Result - Labs CBC & Chem 7: 06/24/17 08:38 06/24/17 08:38 Labs: Short CBC 06/24/17 Range/Units 08:38 WBC 6.1 (4.3-11.1) K/mcL Hgb 12.5 (11.5-15.4) g/dL Hct 40.0 (35.3-44.9) % Plt Count 144 (140-400) K/mcL Neutrophils # 4.3 (1.6-8.9) K/mcL BMP 06/24/17 08:38 Sodium 139 Potassium 4.0 Chloride 106 Carbon Dioxide 28 BUN 11 Creatinine 0.73 Glucose 130 H Calcium 9.7 - ABG Interpretation ABG results: PT/INR, D-dimer PT 22.8 Seconds (9.4-12.1) H 06/21/17 19:35 - VTE Reasons for not Prescribing Prophylaxis: Not indicated-Anticoagulated or INR therapeutic Consult Discharge Plan - Plan Referrals: Rodri Marques DO [Primary Care Provider] -
[2017-06-25] MEDS: Verapamil ER (24 HR) 180 MG TABLET.ER PO SCH (08:48)
[2017-06-25] MEDS: Venlafaxine XR (24 HR) 75 MG CAP.ER.24H PO SCH (08:48)
[2017-06-25] MEDS: *HR* LORazepam 0.5 MG TABLET PO SCH (08:49)
[2017-06-25] MEDS: Cholecalciferol (D-3) 1,000 UNIT TABLET PO SCH (08:49)
[2017-06-25] MEDS: Apixaban 5 MG TABLET PO SCH (08:49)
[2017-06-25] MEDS: *HR* OxyCODONE/APAP 5/325 TABLET PO PRN (08:52)
[2017-06-25] MEDS: Insulin LISPRO 300 UNITS/3 ML VIAL SQ SCH ×2 (08:58→12:39)
[2017-06-25] MEDS: (Xyzal 5 MG) PO SCH (08:59)
[2017-06-25] MEDS: (Ezetimibe [Ezetimibe] 10 MG) PO SCH (08:59)
[2017-06-25 10:45] VITALS: BP 117/73
--- NOTE | 2017-06-25 12:31 | Discharge Summary ---
Date of Encounter: 06/25/17 Time of Encounter: 12:21 - Discharge Diagnosis (1) Left rib fracture Priority: Primary Status: Acute Comments: posterior left eighth and 10th mildly displaced left rib fracture-continue with pain medication as well as lidocaine patch Encouraged patient to cough and deep breathe and splint Incentive spirometry Continue with PT and OT- she will be discharged to [facility] Qualifiers: Encounter type: initial encounter Rib fracture type: multiple ribs Fracture type: closed Qualified Code(s): S22.42XA - Multiple fractures of ribs , left side, initial encounter for closed fracture (2) Fall Priority: Primary Status: Acute Comments: 1 Patient initially presented with a fall and she was hypotensive on presentation she was given IV fluids and responded well we did hold her lisinopril and Lasix orthostatic vitals were negative her blood pressure has been stable with systolic or than 100 Continue fall precautions PT OT has evaluated patient suggesting short-term rehabilitation. Patient has been accepted to [facility] however we are awaiting preauthorization from insurance company Carotid Dopplers are within normal limits Cardiac echo shows EF of 55% atypical septal motion consistent with bundle branch block indeterminant diastolic function normal right ventricular structure and function mild to moderate mitral stenosis mean gradient 6 mmHg no evidence of pulmonary hypertension Patient will be discharged to ECF for rehabilitation Qualifiers: Encounter type: initial encounter Qualified Code(s): W19.XXXA - Unspecified fall, initial encounter (3) Weakness Priority: Secondary Status: Acute Comments: 1 patient will go to ECF for short-term rehabilitation (4) A-fib Priority: Secondary Status: Acute Comments: Continue with verapamil and Eliquis Qualifiers: Atrial fibrillation type: unspecified Qualified Code(s): I48.91 - Unspecified atrial fibrillation (5) Diabetes Priority: Secondary Status: Acute Comments: Continue with home medications Qualifiers: Diabetes mellitus type: type 2 Diabetes mellitus 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 Koo is a 77 year old female past OB history of atrophic fibrillation CVA DVT diabetes care hyperlipidemia and hypertension. She originally presented to [facility] ED after experiencing a fall. The patient fell backwards and onto her left side CT of head was negative. CTA of the chest was completed which did show L rib fractures posterior eighth retentive minimally displaced left rib fracture. She did have hypotension on presentation with systolic in the 80s she received 2 L of IV fluids which did improve her blood pressure. We did hold her diuretics as well as her lisinopril . Orthostatics were negative echo showed EF of 55% atypical septal motion consistent with bundle branch block and determine diastolic function mild to moderate mitral stenosis no evidence of pulmonary hypertension. Carotid Dopplers were within normal limits. Patient did have difficulty ambulating due to pain and weakness. She was evaluated by physical therapy who did recommend short-term physical therapy. Patient has been admitted to [facility] for continued physical therapy. Presently patient is hemodynamically stable she is participating in physical therapy without any difficulty. She will follow-up with her PCP as outpatient. Patient verbalized understanding - Time Spent with Patient Total time spent providing and/or coordinating discharge services: - Discharge Medications Prescriptions: OxyCODONE/APAP 5/325 [Percocet 5/325 MG] 1 each PO Q6HR PRN 7 Days #28 tablet PRN Reason: Moderate Pain Home Medications: Apixaban [Eliquis] 5 mg PO BID 06/21/17 [History] Cholecalciferol (D-3) [Vitamin D] 1,000 unit PO DAILY 06/21/17 [History] Donepezil [Aricept] 10 mg PO HS 06/21/17 [History] Ezetimibe [Ezetimibe] 10 mg PO DAILY 06/21/17 [History] Gabapentin [Neurontin] 400 mg PO QPM 06/21/17 [History] Gabapentin [Neurontin] 800 mg PO QAM 06/21/17 [History] Glimepiride [Amaryl] 4 mg PO QAM 06/21/17 [History] LORazepam [Ativan] 0.5 mg PO DAILY PRN 06/21/17 [History] LORazepam [Ativan] 0.5 mg PO QAM 06/21/17 [History] Metoprolol Tartrate [Metoprolol Tartrate] 50 mg PO BID 06/21/17 [History] Naproxen [Naprosyn] 250 mg PO BID PRN 06/21/17 [History] Ranitidine HCl [Zantac] 150 mg PO DAILY PRN 06/21/17 [History] Rosuvastatin Calcium [Rosuvastatin Calcium] 40 mg PO HS 06/21/17 [History] Sertraline [Zoloft] 100 mg PO DAILY 06/21/17 [History] Sitagliptin Phosphate [Januvia] 50 mg PO DAILY 06/21/17 [History] Venlafaxine HCl [Venlafaxine HCl ER] 75 mg PO DAILY 06/21/17 [History] Verapamil HCl 360 mg PO DAILY 06/21/17 [History] Xyzal 5 mg PO DAILY 06/21/17 [History] Lidocaine Patch [Lidoderm 5% patch] 1 each TP DAILY adh..patch 06/25/17 [Rx] OxyCODONE/APAP 5/325 [Percocet 5/325 MG] 1 each PO Q6HR PRN 7 Days #28 tablet [Rx] Allergies/Adverse Reactions: 3 Allergy/AdvReac Type Severity Reaction Status Date / Time Sulfa (Sulfonamide Allergy Hives Verified 06/21/17 14:51 Antibiotics) Date of admission: 06/21/17 17:55 Primary care physician: Rodri Marques DO Consults: 06/22/17 15:37 Consult to Physical Therapy [CONS] Routine Comment: Evaluate, develop and implement POC Reason for Consult: fall- rib fracture-difficulty ambulating Does patient have active BEDREST order?: No Is patient medically & hemodynamically stable?: Yes Patient assessed for mobility or mobilized this visit?: No 06/22/17 15:38 Consult to Occupational Therapy [CONS] Routine Comment: Evaluate, develop and implement POC Reason for Consult: fall rib fx difficulty ambulating Does patient have active BEDREST order?: No Is patient medically & hemodynamically stable?: Yes Patient assessed for mobility or mobilized this visit?: Yes 06/23/17 12:53 Consult to Mortgage Lender [CONS] Routine Reason for SW Consult: ECF placement Discharging clinician: [employer] Anticipated date of discharge: 06/25/17 - Constitutional Vitals: Temp Pulse Resp BP Pulse Ox 97.8 F 85 14 117/73 96 06/25/17 10:45 06/25/17 10:45 06/25/17 10:45 06/25/17 10:45 06/25/17 10:45 General appearance: Present: A&O X 3, no acute distress - Head Head exam: Present: atraumatic, normocephalic - Eye Eye exam: Present: PERRL, conjuntiva pink, sclera anicteric Pupils: Present: PERRL - Neck Neck exam general surgery: Present: supple, trachea midline. Absent: lymphadenopathy - Respiratory Respiratory exam: Present: CTAB. Absent: accessory muscle use, rales, rhonchi, wheezes - Cardiovascular Cardiovascular exam: Present: RRR, +S1, +S2. Absent: diastolic murmur, gallop, rubs, systolic murmur - GI/Abdominal GI/Abdominal exam: Present: normal bowel sounds, soft, no peritoneal signs. Absent: distended, tenderness - Extremities Exam Extremities exam: Present: warm, radial pulses palpable and symmetrical. Absent : calf tenderness, cyanotic, pedal edema - Neurological Exam Neurological exam: Present: CN II-XII intact, oriented X3, no focal deficits. Absent: pronater drift, facial droop, speech deficit - Skin Skin exam: Present: dry, intact - Patient Status Disposition: Home, Self-Care Condition: Fair Functional capacity at discharge: uses cane/walker Overall status at discharge: patient is not back to baseline - Discharge Instructions Instructions: Atrial Fibrillation (DC), Diabetes Mellitus Type 2 in Adults (DC) , Chronic Hypertension (DC), Fall Prevention (DC) Follow Up With: Rodri Marques DO [Primary Care Provider] - - Diet and Activity Activity: as per physical therapy Diet: advance to your usual diet - VTE Reasons for not Prescribing Prophylaxis: Not indicated-Anticoagulated or INR therapeutic
--- NOTE | 2017-06-25 12:54 | Physician Discharge Referral ---
[facility] Referral Info Transfer To: [facility] Provider in Charge: [employer] Provider in Charge after Transfer: PCP Institutional Level of Care: Skilled - Diagnosis (1) Left rib fracture Priority: Primary Status: Acute (2) Fall Priority: Primary Status: Acute (3) Weakness Priority: Primary Status: Acute (4) A-fib Priority: Secondary Status: Acute (5) Diabetes Priority: Secondary Status: Acute Prognosis: Good Aware of Diagnosis: Patient - Transfer Medications Prescriptions: OxyCODONE/APAP 5/325 [Percocet 5/325 MG] 1 each PO Q6HR PRN 7 Days #28 tablet PRN Reason: Moderate Pain Home Medications: Apixaban [Eliquis] 5 mg PO BID 06/21/17 [History] Cholecalciferol (D-3) [Vitamin D] 1,000 unit PO DAILY 06/21/17 [History] Donepezil [Aricept] 10 mg PO HS 06/21/17 [History] Ezetimibe [Ezetimibe] 10 mg PO DAILY 06/21/17 [History] Gabapentin [Neurontin] 400 mg PO QPM 06/21/17 [History] Gabapentin [Neurontin] 800 mg PO QAM 06/21/17 [History] Glimepiride [Amaryl] 4 mg PO QAM 06/21/17 [History] LORazepam [Ativan] 0.5 mg PO DAILY PRN 06/21/17 [History] LORazepam [Ativan] 0.5 mg PO QAM 06/21/17 [History] Metoprolol Tartrate [Metoprolol Tartrate] 50 mg PO BID 06/21/17 [History] Naproxen [Naprosyn] 250 mg PO BID PRN 06/21/17 [History] Ranitidine HCl [Zantac] 150 mg PO DAILY PRN 06/21/17 [History] Rosuvastatin Calcium [Rosuvastatin Calcium] 40 mg PO HS 06/21/17 [History] Sertraline [Zoloft] 100 mg PO DAILY 06/21/17 [History] Sitagliptin Phosphate [Januvia] 50 mg PO DAILY 06/21/17 [History] Venlafaxine HCl [Venlafaxine HCl ER] 75 mg PO DAILY 06/21/17 [History] Verapamil HCl 360 mg PO DAILY 06/21/17 [History] Xyzal 5 mg PO DAILY 06/21/17 [History] Lidocaine Patch [Lidoderm 5% patch] 1 each TP DAILY adh..patch 06/25/17 [Rx] OxyCODONE/APAP 5/325 [Percocet 5/325 MG] 1 each PO Q6HR PRN 7 Days #28 tablet [Rx] Allergies/Adverse Reactions: 3 Allergy/AdvReac Type Severity Reaction Status Date / Time Sulfa (Sulfonamide Allergy Hives Verified 06/21/17 14:51 Antibiotics) - Respiratory Orders Smoking Cessation: Smoking cessation has been advised. For more information, call the [place] Tobacco Quit Line at 5-502-XPTF-NOW. - Rehabiliation Orders Rehab Potential: Good Rehab Orders: Evaluation for Physical Therapy, Evaluation for Occupational Therapy - Diet Orders No Concentrated Sweets CERTIFICATION: I certify that the transfer of the above named patient to an Extended Care Facility is necessary for the continuing treatment of the diagnosis listed. The above information is true and accurate reflection of patient's current condition. Confidential - Redisclosure prohibited without a patient's written consent.
--- NOTE | 2017-06-29 22:04 | Electrocardiograph Report ---
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
== END 2017-06-25 16:30 ==
LOC: 3BNU 14:16 → EMEROO 14:16 → 3BNU 18:22
PROVIDERS: ADMIT Internal Medicine; ATTEND Registered Nurse

== ENCOUNTER 2019-08-12 00:47 | Inpatient (IN) ==
[2019-08-12] MEDS ORDERED: Naloxone 0.4 MG/ML INJ IVP PRN (03:01)
[2019-08-12] MEDS ORDERED: Famotidine 20 MG TABLET PO PRN (03:11)
[2019-08-12] MEDS ORDERED: *HR* LORazepam 0.5 MG TABLET PO PRN (03:11)
[2019-08-12] MEDS ORDERED: D5% in Water 1,000 ML IVC PRN ×2 (03:19→05:30)
[2019-08-12] MEDS ORDERED: *HR* Dextrose 50 % in Water (Syg) 50 ML SYRINGE IVP PRN ×2 (03:19→05:30)
[2019-08-12] MEDS ORDERED: Dextrose Gel 15 GM/37.5 ML TUBE PO PRN ×4 (03:19→05:30)
[2019-08-12] MEDS: Morphine Sulfate 2 MG/ML SYRINGE IVP PRN ×2 (03:25→08:56)
[2019-08-12 04:03] LABS: Hematocrit 35.6 % (35.3-44.9); Mean Corpuscular HGB Conc 30.9 g/dL (31.6-35.5); Mean Corpuscular Hemoglobin 29.3 pg (28.0-33.3); Mean Corpuscular Volume 94.7 fL (83.0-100.0); Mean Platelet Volume 10.6 fL (9.4-12.4); Platelet Count 171 K/mcL (140-400); Red Blood Count 3.76 M/mcL (3.82-4.97); Red Cell Distribution Width 16.1 % (11.5-14.5); White Blood Count 4.3 K/mcL (4.3-11.1)
[2019-08-12 04:23] LABS: Albumin 4.1 g/dL (3.5-5.7); Albumin/Globulin Ratio 1.5 (1.1-2.2); Bilirubin,Total 0.7 mg/dL (0.3-1.0); Calcium 10.2 mg/dL (8.6-10.3); Globulin 2.7 g/dL (2.4-3.5); Magnesium 2.1 mg/dL (1.6-2.6); Phosphorous 2.6 mg/dL (2.7-4.5); Potassium 3.7 mEq/L (3.5-5.1); Total Protein 6.8 g/dL (6.4-8.9)
[2019-08-12] MEDS ORDERED: Insulin LISPRO 300 UNITS/3 ML VIAL SQ SCH (06:00)
[2019-08-12 06:09] LABS: INR 1.4; Prothrombin Time 15.9 Seconds (9.4-12.1)
[2019-08-12] MEDS: Insulin LISPRO 300 UNITS/3 ML VIAL SQ SCH ×4 (08:57→21:19)
[2019-08-12] MEDS: *HR* LORazepam 0.5 MG TABLET PO SCH (08:57)
[2019-08-12] MEDS: Verapamil ER (24 HR) 180 MG TABLET.ER PO SCH (08:58)
[2019-08-12] MEDS: Venlafaxine XR (24 HR) 75 MG CAP.ER.24H PO SCH (08:58)
[2019-08-12] MEDS ORDERED: Apixaban 5 MG TABLET PO ONE (09:00)
[2019-08-12] MEDS ORDERED: Acetaminophen 325 MG TABLET PO PRN (09:27)
[2019-08-12] MEDS ORDERED: Gabapentin 400 MG CAPSULE PO SCH ×3 (09:30→18:00)
[2019-08-12] MEDS ORDERED: Perflutren Lipid Microsphere 1.3 ML in 0.9 % Sodium Chloride 8.7 ML IVP ONE (10:19)
[2019-08-12] MEDS: *HR* OxyCODONE Immed Rel 5 MG TABLET PO PRN ×2 (12:01→21:21)
[2019-08-12] MEDS: *HR* Heparin 5,000 UNIT/ML VIAL SQ SCH (17:05)
[2019-08-12] MEDS: *HR* HYDROcodone/Acet 5/325 mg TABLET PO PRN (17:05)
[2019-08-12] MEDS: Melatonin 3 MG TABLET PO SCH (21:21)
[2019-08-13] MEDS: *HR* HYDROmorphone PF 0.5 MG/0.5 ML SYRINGE IVP PRN ×3 (02:18→09:59)
[2019-08-13 02:26] LABS: Basophils % 0.4 %; Eosinophils # 0.1 K/mcL (0.0-0.6); Eosinophils % 1.4 %; Hematocrit 36.2 % (35.3-44.9); Hemoglobin 11.1 g/dL (11.5-15.4); Immature Granulocytes % 0.4 % (0-4); Lymphocytes # 1.1 K/mcL (0.6-4.6); Lymphocytes % 22.2 %; Mean Corpuscular HGB Conc 30.7 g/dL (31.6-35.5); Mean Corpuscular Hemoglobin 29.5 pg (28.0-33.3); Mean Corpuscular Volume 96.3 fL (83.0-100.0); Mean Platelet Volume 10.4 fL (9.4-12.4); Monocytes # 0.7 K/mcL (0.0-1.3); Monocytes % 14.1 %; Platelet Count 185 K/mcL (140-400); Red Blood Count 3.76 M/mcL (3.82-4.97); Red Cell Distribution Width 16.3 % (11.5-14.5); Segmented Neutrophils % 61.5 %
[2019-08-13 02:47] LABS: BUN/Creatinine Ratio 14 (6-26); Blood Urea Nitrogen 15 mg/dL (8-23); Calcium 9.7 mg/dL (8.6-10.3); Carbon Dioxide 27 mEq/L (23-29); Chloride 96 mEq/L (98-107); Glucose 197 mg/dL (70-105); Osmolality,Calculated 284 (280-300); Sodium 134 mEq/L (136-145); eGFR For African Americans > 60 (> 60); eGFR For Non-African Americans 50 (> 60)
[2019-08-13] MEDS: *HR* OxyCODONE Immed Rel 5 MG TABLET PO PRN ×3 (05:44→18:07)
[2019-08-13] MEDS: *HR* Heparin 5,000 UNIT/ML VIAL SQ SCH (05:45)
[2019-08-13] MEDS ORDERED: Ondansetron 4 MG/2 ML VIAL IVP PRN (08:49)
[2019-08-13] MEDS: Insulin LISPRO 300 UNITS/3 ML VIAL SQ SCH ×4 (08:57→21:10)
[2019-08-13] MEDS: Verapamil ER (24 HR) 180 MG TABLET.ER PO SCH (08:59)
[2019-08-13] MEDS: Cholecalciferol (D-3) 1,000 UNIT (25MCG) TABLET PO SCH (08:59)
[2019-08-13] MEDS: Gabapentin 400 MG CAPSULE PO SCH (08:59)
[2019-08-13] MEDS: *HR* LORazepam 0.5 MG TABLET PO SCH (09:00)
[2019-08-13] MEDS: Venlafaxine XR (24 HR) 75 MG CAP.ER.24H PO SCH (09:00)
[2019-08-13] MEDS: Loratadine 10 MG TABLET PO SCH (09:01)
[2019-08-13] MEDS ORDERED: Sennosides/Docusate Sodium TABLET PO ONE (10:00)
[2019-08-13] MEDS ORDERED: Sennosides/Docusate Sodium TABLET PO PRN (10:00)
[2019-08-13] MEDS ORDERED: *HR* Heparin 5,000 UNIT/ML VIAL IVP PRN ×2 (13:55)
[2019-08-13] MEDS ORDERED: Heparin 25,000 UNIT/250 ML D5W 25,000 UNIT/250 ML IV.SOLN IVC SCH (14:00)
[2019-08-13 14:17] LABS: Hemoglobin 10.7 g/dL (11.5-15.4); Mean Corpuscular HGB Conc 29.7 g/dL (31.6-35.5); Mean Corpuscular Hemoglobin 29.2 pg (28.0-33.3); Mean Corpuscular Volume 98.4 fL (83.0-100.0); Mean Platelet Volume 10.4 fL (9.4-12.4); Platelet Count 219 K/mcL (140-400); Red Blood Count 3.66 M/mcL (3.82-4.97); Red Cell Distribution Width 16.1 % (11.5-14.5); White Blood Count 7.1 K/mcL (4.3-11.1)
[2019-08-13 14:24] LABS: Heparin anti-factor XA UFH 0.76 IU/mL (0.30-0.70)
[2019-08-13 14:25] LABS: INR 1.4; Prothrombin Time 15.9 Seconds (9.4-12.1)
[2019-08-13] MEDS ORDERED: Gabapentin 400 MG CAPSULE PO SCH (18:00)
[2019-08-13] MEDS: Melatonin 3 MG TABLET PO SCH (21:09)
[2019-08-13] MEDS: *HR* HYDROcodone/Acet 5/325 mg TABLET PO PRN (22:06)
[2019-08-14 02:50] LABS: Basophils # 0.1 K/mcL (0.0-0.2); Basophils % 0.5 %; Eosinophils # 0.1 K/mcL (0.0-0.6); Eosinophils % 0.8 %; Hematocrit 32.2 % (35.3-44.9); Hemoglobin 9.8 g/dL (11.5-15.4); Immature Granulocytes % 0.4 % (0-4); Lymphocytes # 1.8 K/mcL (0.6-4.6); Lymphocytes % 19.3 %; Mean Corpuscular HGB Conc 30.4 g/dL (31.6-35.5); Mean Corpuscular Hemoglobin 30.2 pg (28.0-33.3); Mean Corpuscular Volume 99.1 fL (83.0-100.0); Mean Platelet Volume 10.3 fL (9.4-12.4); Monocytes # 1.3 K/mcL (0.0-1.3); Monocytes % 14.5 %; Neutrophils # 5.9 K/mcL (1.6-8.9); Nucleated Red Blood Cells 0.4 /100 WBC (0); Platelet Count 197 K/mcL (140-400); Red Blood Count 3.25 M/mcL (3.82-4.97); Red Cell Distribution Width 16.1 % (11.5-14.5); Segmented Neutrophils % 64.5 %; White Blood Count 9.1 K/mcL (4.3-11.1)
[2019-08-14 03:11] LABS: Calcium 9.3 mg/dL (8.6-10.3); Potassium 4.6 mEq/L (3.5-5.1)
[2019-08-14] MEDS ORDERED: *HR* Propofol 200 MG/20 ML VIAL IVP ONE (07:32)
[2019-08-14] MEDS ORDERED: *HR* FentaNYL (PF) 100 MCG/2 ML VIAL ONE (07:32)
[2019-08-14] MEDS ORDERED: Ondansetron 4 MG/2 ML VIAL ONE (07:34)
[2019-08-14] MEDS ORDERED: Dexamethasone 4 MG/ML VIAL ONE (07:34)
[2019-08-14] MEDS ORDERED: Lidocaine -MPF 2% 2 ML VIAL ONE (07:34)
[2019-08-14] MEDS ORDERED: 0.9 % Sodium Chloride 250 ML IVC ONE ×3 (08:25→13:42)
[2019-08-14] MEDS ORDERED: 0.9 % Sodium Chloride 1,000 ML IVC SCH ×2 (08:30→11:39)
[2019-08-14] MEDS ORDERED: Acetaminophen IV 1,000 MG/100 ML INFUS..BTL ONE (08:56)
[2019-08-14] MEDS ORDERED: *HR* Succinylcholine 200 MG/10 ML VIAL IVP ONE (08:59)
[2019-08-14] MEDS ORDERED: *HR* PHENYLEPHRINE 1,000 MCG/10 ML SYRINGE IVP ONE (09:31)
[2019-08-14] MEDS ORDERED: *HR* Promethazine 25 MG/ML VIAL IVP PRN (10:28)
[2019-08-14] MEDS ORDERED: Pregabalin 75 MG CAPSULE PO ONE (10:28)
[2019-08-14] MEDS ORDERED: *HR* HYDROmorphone (PF) 1 MG/ML SYRINGE IVP PRN (10:28)
[2019-08-14] MEDS ORDERED: *HR* HYDROmorphone 2 MG TABLET PO PRN (10:28)
[2019-08-14 10:56] LABS: Hematocrit 32.9 % (35.3-44.9); Hemoglobin 9.8 g/dL (11.5-15.4)
[2019-08-14] MEDS ORDERED: Famotidine 20 MG TABLET PO PRN (11:22)
[2019-08-14] MEDS ORDERED: *HR* OxyCODONE Immed Rel 5 MG TABLET PO PRN (11:39)
[2019-08-14] MEDS ORDERED: Dextrose Gel 15 GM/37.5 ML TUBE PO PRN (11:39)
[2019-08-14] MEDS ORDERED: *HR* Dextrose 50 % in Water (Syg) 50 ML SYRINGE IVP PRN (11:39)
[2019-08-14] MEDS ORDERED: D5% in Water 1,000 ML IVC PRN (11:39)
[2019-08-14] MEDS ORDERED: Naloxone 0.4 MG/ML INJ IVP PRN (11:39)
[2019-08-14] MEDS ORDERED: Acetaminophen 325 MG TABLET PO PRN (11:39)
[2019-08-14] MEDS ORDERED: Ondansetron 4 MG/2 ML VIAL IVP PRN (11:39)
[2019-08-14] MEDS ORDERED: Sennosides/Docusate Sodium TABLET PO PRN (11:39)
[2019-08-14] MEDS ORDERED: *HR* LORazepam 0.5 MG TABLET PO PRN (11:39)
[2019-08-14] MEDS ORDERED: *HR* Dextrose 50 % in Water (Syg) 50 ML SYRINGE IVC ONE (12:59)
[2019-08-14] MEDS ORDERED: *HR* EPINEPHrine 1 MG/10 ML SYRINGE IVP ONE (12:59)
[2019-08-14] MEDS ORDERED: *HR* Atropine Sulfate 1 MG/10 ML SYRINGE IV ONE (12:59)
[2019-08-14] MEDS: Pantoprazole 40 MG VIAL IVP SCH (14:23)
[2019-08-14] MEDS ORDERED: *HR* Atropine Sulfate 1 MG/10 ML SYRINGE IVP ONE (16:09)
[2019-08-14 16:17] LABS: Calcium 8.9 mg/dL (8.6-10.3); Potassium 5.8 mEq/L (3.5-5.1)
[2019-08-14] MEDS ORDERED: Insulin Human Regular 10 UNIT in 0.9 % Sodium Chloride 10 ML IV ONE (16:17)
[2019-08-14] MEDS ORDERED: *HR* Dextrose 50 % in Water (Syg) 50 ML SYRINGE IVP ONE (16:18)
[2019-08-14] MEDS ORDERED: Albuterol 2.5 MG/3 ML NEBULIZER IH ONE (16:29)
[2019-08-14] MEDS ORDERED: Insulin LISPRO 300 UNITS/3 ML VIAL SQ SCH ×2 (16:30→21:00)
[2019-08-14] MEDS: Calcium Gluconate 1gm/50mL 1 GM/50 ML BAG IVPB ONE ×2 (16:30→17:08)
[2019-08-14 16:38] LABS: Hematocrit 31.8 % (35.3-44.9)
[2019-08-14] MEDS ORDERED: Calcium Gluconate 1gm/50mL 1 GM/50 ML BAG IVPB ONE (17:05)
[2019-08-14] MEDS: Norepinephrine 4 MG in 0.9 % Sodium Chloride 250 ML IVC SCH ×2 (17:15→21:08)
[2019-08-14 17:56] LABS: VBG Ionized Calcium 1.13 mmol/L (1.15-1.35)
[2019-08-14] MEDS ORDERED: Gabapentin 400 MG CAPSULE PO SCH (18:00)
[2019-08-14] MEDS ORDERED: *HR* LORazepam 0.5 MG TABLET PO SCH (18:00)
[2019-08-14 18:08] LABS: Magnesium 2.7 mg/dL (1.6-2.6)
[2019-08-14 18:10] LABS: Albumin/Globulin Ratio 1.2 (1.1-2.2); Bilirubin,Direct 0.7 mg/dL (0.0-0.2); Bilirubin,Indirect 0.5 mg/dL (0.0-1.0); Bilirubin,Total 1.2 mg/dL (0.3-1.0); Calcium 9.1 mg/dL (8.6-10.3); Globulin 2.5 g/dL (2.4-3.5); Potassium 6.6 mEq/L (3.5-5.1); Total Protein 5.5 g/dL (6.4-8.9)
[2019-08-14] MEDS: ceFAZolin 2,000 MG in 0.9 % Sodium Chloride 100 ML IVPB SCH (18:44)
[2019-08-14 18:45] LABS: ABG Base Excess -17 mEq/L (-2 to 3); ABG HCO3 13 mEq/L (21-27); ABG Oxygen Saturation 87 % (95-98); ABG PCO2 44 mmHg (35-45); ABG PH 7.06 pH Units (7.32-7.45); ABG PO2 74 mmHg (85-104); ABG TCO2 14 mEq/L (20-26)
[2019-08-14] MEDS ORDERED: Sodium Bicarbonate 50 MEQ/50 ML VIAL IVP ONE ×2 (18:50→19:01)
[2019-08-14] MEDS ORDERED: Sodium Bicarbonate 50 MEQ/50 ML VIAL ONE ×2 (18:54)
[2019-08-14] MEDS: Hydrocortisone Sodium Succ 100 MG/2 ML VIAL IVP SCH (18:55)
[2019-08-14] MEDS: Insulin LISPRO 300 UNITS/3 ML VIAL SQ SCH ×4 (19:10→22:43)
[2019-08-14] MEDS: Verapamil ER (24 HR) 180 MG TABLET.ER PO SCH (19:20)
[2019-08-14] MEDS: *HR* LORazepam 0.5 MG TABLET PO SCH (19:20)
[2019-08-14] MEDS: Loratadine 10 MG TABLET PO SCH (19:21)
[2019-08-14] MEDS: Venlafaxine XR (24 HR) 75 MG CAP.ER.24H PO SCH (19:21)
[2019-08-14] MEDS: Cholecalciferol (D-3) 1,000 UNIT (25MCG) TABLET PO SCH (19:21)
[2019-08-14] MEDS: Gabapentin 400 MG CAPSULE PO SCH (19:21)
[2019-08-14] MEDS: Sodium Bicarbonate 150 MEQ in D5% in Water 1,000 ML IVC SCH (19:51)
[2019-08-14] MEDS ORDERED: 0.9 % Sodium Chloride 2,000 ML ONE (20:43)
[2019-08-14] MEDS ORDERED: Calcium Gluconate 1gm/50mL 1 GM/50 ML BAG IVPB PRN (20:57)
[2019-08-14] MEDS ORDERED: Gabapentin 300 MG CAPSULE PO SCH (21:00)
[2019-08-14] MEDS ORDERED: 0.9 % Sodium Chloride 1,000 ML PRIME SCH (21:00)
[2019-08-14] MEDS ORDERED: PrismaSATE BGK 2/0 5,000 ML CRRT SCH ×2 (21:00)
[2019-08-14] MEDS ORDERED: Melatonin 3 MG TABLET PO SCH ×2 (21:00)
[2019-08-14] MEDS ORDERED: Apixaban 5 MG TABLET PO SCH (21:00)
[2019-08-14 21:12] LABS: Basophils % 0.1 %; Eosinophils % 0.1 %; Hematocrit 30.3 % (35.3-44.9); Hemoglobin 8.7 g/dL (11.5-15.4); Immature Granulocytes % 0.7 % (0-4); Lymphocytes # 1.1 K/mcL (0.6-4.6); Lymphocytes % 11.6 %; Mean Corpuscular HGB Conc 28.7 g/dL (31.6-35.5); Mean Corpuscular Hemoglobin 29.1 pg (28.0-33.3); Mean Corpuscular Volume 101.3 fL (83.0-100.0); Mean Platelet Volume 10.7 fL (9.4-12.4); Monocytes # 1.1 K/mcL (0.0-1.3); Monocytes % 11.9 %; Nucleated Red Blood Cells 4.4 /100 WBC (0); Platelet Count 193 K/mcL (140-400); Red Blood Count 2.99 M/mcL (3.82-4.97); Red Cell Distribution Width 15.8 % (11.5-14.5); Segmented Neutrophils % 75.6 %; White Blood Count 9.2 K/mcL (4.3-11.1)
[2019-08-14 21:28] LABS: Hypochromasia Present (Not Present)
[2019-08-14 21:29] LABS: Large Platelets Present (Not Present); Microcytosis Present (Not Present); Platelet Estimate Normal (Normal); Reactive Lymphocytes Present (Not Present)
[2019-08-14 21:29] LABS: Sodium, Urine 22.7 mEq/L
[2019-08-14 21:51] LABS: Calcium 8.2 mg/dL (8.6-10.3); Magnesium 2.1 mg/dL (1.6-2.6); Phosphorous 6.9 mg/dL (2.7-4.5); Potassium 4.3 mEq/L (3.5-5.1)
[2019-08-14] MEDS ORDERED: 0.9 % Sodium Chloride 250 ML ONE (22:01)
[2019-08-14 22:26] LABS: Bilirubin,Urine Small (Negative); Blood,Urine Moderate (Negative); Clarity,Urine Cloudy (Clear); Color,Urine Yellow (Yellow); Glucose,Urine (UA) 100 mg/dL (Normal); Ketones,Urine Negative (Negative); Leukocyte Esterase,Urine Negative (Negative); Nitrite,Urine Negative (Negative); PH,Urine 5.5 pH Units (5.0-8.0); Protein,Urine >=300 mg/dL (Neg-Trace); Specific Gravity,Urine >= 1.030 (1.010-1.025); Urobilinogen,Urine Normal (Normal)
[2019-08-14 22:35] LABS: RBC,Urine 15-30 per hpf (0-3)
[2019-08-14 22:36] LABS: Amorphous Sediment,Urine Few per hpf (Few); Bacteria,Urine Moderate per hpf (None-Few); Squamous Epithelial Cell,Urine Few per lpf (None-Few)
[2019-08-14] MEDS: Calcium Chloride 4,000 MG in 0.9 % Sodium Chloride 1,000 ML CRRT SCH (22:42)
[2019-08-14] MEDS: PrismaSATE BGK 4/2.5 5,000 ML CRRT SCH ×2 (23:29)
[2019-08-15] MEDS: Hydrocortisone Sodium Succ 100 MG/2 ML VIAL IVP SCH ×2 (00:07→08:13)
[2019-08-15] MEDS: Insulin LISPRO 300 UNITS/3 ML VIAL SQ SCH ×6 (00:07→19:34)
[2019-08-15] MEDS: ceFAZolin 2,000 MG in 0.9 % Sodium Chloride 100 ML IVPB SCH (00:07)
[2019-08-15 00:19] LABS: VBG Ionized Calcium 0.96 mmol/L (1.15-1.35)
[2019-08-15 00:35] LABS: Calcium 7.8 mg/dL (8.6-10.3); Potassium 4.1 mEq/L (3.5-5.1)
[2019-08-15] MEDS: Calcium Gluconate 1gm/50mL 1 GM/50 ML BAG IVPB PRN (00:40)
[2019-08-15] MEDS: *HR* Heparin 5,000 UNIT/ML VIAL IVP PRN ×2 (00:45→05:08)
[2019-08-15 02:27] LABS: VBG Ionized Calcium 1.04 mmol/L (1.15-1.35)
[2019-08-15] MEDS: Sodium Bicarbonate 150 MEQ in D5% in Water 1,000 ML IVC SCH ×3 (02:31→15:12)
[2019-08-15] MEDS ORDERED: *HR* LORazepam 2 MG/ML VIAL IVP ONE (04:02)
[2019-08-15] MEDS ORDERED: *HR* LORazepam 2 MG/ML VIAL ONE (04:03)
[2019-08-15] MEDS: Norepinephrine 4 MG in 0.9 % Sodium Chloride 250 ML IVC SCH ×2 (04:31)
[2019-08-15 04:36] LABS: ABG Base Excess -8 mEq/L (-2 to 3); ABG HCO3 20 mEq/L (21-27); ABG Oxygen Saturation 91 % (95-98); ABG PCO2 52 mmHg (35-45); ABG PH 7.19 pH Units (7.32-7.45); ABG PO2 76 mmHg (85-104); ABG TCO2 22 mEq/L (20-26)
[2019-08-15 04:43] LABS: VBG Ionized Calcium 1.07 mmol/L (1.15-1.35)
[2019-08-15 04:51] LABS: Hematocrit 27.3 % (35.3-44.9); Hemoglobin 8.1 g/dL (11.5-15.4); Mean Corpuscular HGB Conc 29.7 g/dL (31.6-35.5); Mean Corpuscular Hemoglobin 29.5 pg (28.0-33.3); Mean Corpuscular Volume 99.3 fL (83.0-100.0); Mean Platelet Volume 11.2 fL (9.4-12.4); Nucleated Red Blood Cells 3.5 /100 WBC (0); Platelet Count 165 K/mcL (140-400); Red Blood Count 2.75 M/mcL (3.82-4.97); Red Cell Distribution Width 15.8 % (11.5-14.5)
[2019-08-15] MEDS ORDERED: *HR* Heparin 5,000 UNIT/ML VIAL ONE (04:53)
[2019-08-15 05:12] LABS: Albumin 3.1 g/dL (3.5-5.7); Albumin/Globulin Ratio 1.3 (1.1-2.2); Bilirubin,Direct 0.5 mg/dL (0.0-0.2); Bilirubin,Indirect 0.4 mg/dL (0.0-1.0); Bilirubin,Total 0.9 mg/dL (0.3-1.0); Calcium 8.6 mg/dL (8.6-10.3); Globulin 2.4 g/dL (2.4-3.5); Potassium 4.6 mEq/L (3.5-5.1); Total Protein 5.5 g/dL (6.4-8.9); Troponin I 0.03 ng/mL (< 0.04)
[2019-08-15] MEDS: PrismaSATE BGK 4/2.5 5,000 ML CRRT SCH ×8 (05:13→20:12)
[2019-08-15 05:30] LABS: Lymphocytes # 1.7 K/mcL (0.6-4.6); Monocytes # 0.7 K/mcL (0.0-1.3); Neutrophils # 9.1 K/mcL (1.6-8.9)
[2019-08-15 05:31] LABS: Anisocytosis 1+ (Not Present); Large Platelets Present (Not Present); Platelet Estimate Normal (Normal); Reactive Lymphocytes Present (Not Present)
[2019-08-15] MEDS ORDERED: Piperacillin/Tazobactam 3.375 GM in 0.9 % Sodium Chloride Mini Bag 100 ML IVPB SCH (06:00)
[2019-08-15 06:10] LABS: Protein/Creatinine Ratio,Urine 1.53 mg/mg (0.00-0.20); Sodium, Urine 22.1 mEq/L
[2019-08-15 06:31] LABS: VBG Ionized Calcium 1.15 mmol/L (1.15-1.35)
[2019-08-15] MEDS ORDERED: Haloperidol Lactate 5 MG/ML VIAL IVP ONE (07:56)
[2019-08-15] MEDS: *HR* HYDROcodone/Acet 5/325 mg TABLET PO PRN (08:13)
[2019-08-15] MEDS: Loratadine 10 MG TABLET PO SCH (08:13)
[2019-08-15] MEDS: Cholecalciferol (D-3) 1,000 UNIT (25MCG) TABLET PO SCH (08:13)
[2019-08-15] MEDS: Pantoprazole 40 MG VIAL IVP SCH (08:13)
[2019-08-15] MEDS ORDERED: Aminoglycoside Consult 1 EACH MC ONE (08:14)
[2019-08-15 08:38] LABS: Hematocrit 24.8 % (35.3-44.9); Hemoglobin 7.5 g/dL (11.5-15.4)
[2019-08-15] MEDS ORDERED: Venlafaxine XR (24 HR) 75 MG CAP.ER.24H PO SCH (09:00)
[2019-08-15] MEDS ORDERED: Verapamil ER (24 HR) 180 MG TABLET.ER PO SCH (09:00)
[2019-08-15] MEDS ORDERED: Gabapentin 400 MG CAPSULE PO SCH (09:00)
[2019-08-15] MEDS: *HR* LORazepam 2 MG/ML VIAL IVP PRN ×2 (09:18→14:16)
[2019-08-15] MEDS: Calcium Chloride 4,000 MG in 0.9 % Sodium Chloride 1,000 ML CRRT SCH (14:12)
[2019-08-15] MEDS: Piperacillin/Tazobactam 3.375 GM in 0.9 % Sodium Chloride Mini Bag 100 ML IVPB SCH ×2 (14:15→22:14)
[2019-08-15 19:54] LABS: VBG Ionized Calcium 1.17 mmol/L (1.15-1.35)
[2019-08-15 20:02] LABS: Hematocrit 22.9 % (35.3-44.9)
[2019-08-15] MEDS ORDERED: 0.9 % Sodium Chloride 250 ML ONE (20:27)
[2019-08-15] MEDS ORDERED: 0.9 % Sodium Chloride 250 ML IVC SCH ×2 (20:30)
[2019-08-15] MEDS ORDERED: QUEtiapine Fumarate 25 MG TABLET PO SCH (21:00)
[2019-08-15] MEDS: QUEtiapine Fumarate 25 MG TABLET PO SCH (22:14)
[2019-08-15 22:28] LABS: VBG Ionized Calcium 1.19 mmol/L (1.15-1.35)
[2019-08-16] MEDS: Insulin LISPRO 300 UNITS/3 ML VIAL SQ SCH ×7 (00:28→23:19)
[2019-08-16 00:56] LABS: VBG Ionized Calcium 1.17 mmol/L (1.15-1.35)
[2019-08-16 00:56] LABS: Hemoglobin 6.8 g/dL (11.5-15.4)
[2019-08-16 00:57] LABS: Hematocrit 22.3 % (35.3-44.9)
[2019-08-16] MEDS: PrismaSATE BGK 4/2.5 5,000 ML CRRT SCH ×4 (01:13→06:00)
[2019-08-16] MEDS ORDERED: 0.9 % Sodium Chloride 250 ML IVC SCH (02:00)
[2019-08-16] MEDS: Sodium Bicarbonate 150 MEQ in D5% in Water 1,000 ML IVC SCH (02:23)
[2019-08-16 03:39] LABS: Red Cell Distribution Width 16.1 % (11.5-14.5)
[2019-08-16 03:41] LABS: Hematocrit 26.2 % (35.3-44.9); Immature Platelets 9.4 % (1.1-6.1); Mean Corpuscular HGB Conc 30.5 g/dL (31.6-35.5); Mean Corpuscular Hemoglobin 29.2 pg (28.0-33.3); Mean Corpuscular Volume 95.6 fL (83.0-100.0); Mean Platelet Volume 11.2 fL (9.4-12.4); Nucleated Red Blood Cells 7.2 /100 WBC (0); Platelet Count 119 K/mcL (140-400); Red Blood Count 2.74 M/mcL (3.82-4.97); White Blood Count 8.1 K/mcL (4.3-11.1)
[2019-08-16 03:59] LABS: Albumin 2.9 g/dL (3.5-5.7); Albumin/Globulin Ratio 1.3 (1.1-2.2); Bilirubin,Direct 0.5 mg/dL (0.0-0.2); Bilirubin,Indirect 0.8 mg/dL (0.0-1.0); Bilirubin,Total 1.3 mg/dL (0.3-1.0); Calcium 8.4 mg/dL (8.6-10.3); Globulin 2.3 g/dL (2.4-3.5); Magnesium 1.7 mg/dL (1.6-2.6); Phosphorous 2.3 mg/dL (2.7-4.5); Potassium 4.5 mEq/L (3.5-5.1); Total Protein 5.2 g/dL (6.4-8.9)
[2019-08-16 04:30] LABS: Large Platelets Present (Not Present); Monocytes # 0.7 K/mcL (0.0-1.3); Neutrophils # 5.7 K/mcL (1.6-8.9); Platelet Estimate Normal (Normal); Polychromasia 1+ (Not Present)
[2019-08-16 04:31] LABS: Reactive Lymphocytes Present (Not Present)
[2019-08-16] MEDS: Calcium Chloride 4,000 MG in 0.9 % Sodium Chloride 1,000 ML CRRT SCH (04:41)
[2019-08-16] MEDS: Piperacillin/Tazobactam 3.375 GM in 0.9 % Sodium Chloride Mini Bag 100 ML IVPB SCH ×2 (06:00→18:33)
[2019-08-16 06:27] LABS: VBG Ionized Calcium 0.87 mmol/L (1.15-1.35)
[2019-08-16] MEDS: Calcium Gluconate 1gm/50mL 1 GM/50 ML BAG IVPB PRN (07:17)
[2019-08-16] MEDS ORDERED: Isovue-370 500 ML BOTTLE IVP ONE (07:58)
[2019-08-16] MEDS: Pantoprazole 40 MG VIAL IVP SCH ×2 (08:15→18:33)
[2019-08-16] MEDS: Loratadine 10 MG TABLET PO SCH (08:15)
[2019-08-16] MEDS: Cholecalciferol (D-3) 1,000 UNIT (25MCG) TABLET PO SCH (08:15)
[2019-08-16 08:34] LABS: VBG Ionized Calcium 1.11 mmol/L (1.15-1.35)
[2019-08-16 08:36] LABS: Hematocrit 30.5 % (35.3-44.9); Hemoglobin 9.7 g/dL (11.5-15.4)
[2019-08-16] MEDS ORDERED: *HR* Heparin 5,000 UNIT/ML VIAL ONE (08:39)
[2019-08-16] MEDS: *HR* Heparin 5,000 UNIT/ML VIAL IVP PRN (09:02)
[2019-08-16] MEDS ORDERED: *HR* LORazepam 0.5 MG TABLET PO PRN (10:53)
[2019-08-16] MEDS: *HR* HYDROcodone/Acet 5/325 mg TABLET PO PRN (12:40)
[2019-08-16] MEDS: QUEtiapine Fumarate 25 MG TABLET PO SCH (20:01)
[2019-08-17] MEDS: *HR* HYDROmorphone (PF) 1 MG/ML SYRINGE IVP PRN ×4 (00:03→20:49)
[2019-08-17] MEDS: Insulin LISPRO 300 UNITS/3 ML VIAL SQ SCH ×4 (03:30→20:43)
[2019-08-17 03:48] LABS: Basophils % 0.2 %; Eosinophils % 0.3 %; Hematocrit 32.1 % (35.3-44.9); Hemoglobin 10.3 g/dL (11.5-15.4); Immature Granulocytes % 0.5 % (0-4); Immature Platelets 7.8 % (1.1-6.1); Lymphocytes # 1.1 K/mcL (0.6-4.6); Lymphocytes % 9.5 %; Mean Corpuscular HGB Conc 32.1 g/dL (31.6-35.5); Mean Corpuscular Hemoglobin 30.2 pg (28.0-33.3); Mean Corpuscular Volume 94.1 fL (83.0-100.0); Mean Platelet Volume 11.2 fL (9.4-12.4); Monocytes # 1.1 K/mcL (0.0-1.3); Monocytes % 9.9 %; Neutrophils # 8.8 K/mcL (1.6-8.9); Nucleated Red Blood Cells 3.1 /100 WBC (0); Red Blood Count 3.41 M/mcL (3.82-4.97); Segmented Neutrophils % 79.6 %
[2019-08-17 04:05] LABS: Platelet Count 89 K/mcL (140-400)
[2019-08-17 04:06] LABS: Albumin 2.8 g/dL (3.5-5.7); Albumin/Globulin Ratio 1.1 (1.1-2.2); Anisocytosis 1+ (Not Present); Bilirubin,Direct 0.5 mg/dL (0.0-0.2); Bilirubin,Indirect 0.7 mg/dL (0.0-1.0); Bilirubin,Total 1.2 mg/dL (0.3-1.0); Calcium 8.6 mg/dL (8.6-10.3); Globulin 2.5 g/dL (2.4-3.5); Macrocytosis Present (Not Present); Magnesium 1.9 mg/dL (1.6-2.6); Phosphorous 3.8 mg/dL (2.7-4.5); Platelet Estimate Decreased (Normal); Polychromasia 1+ (Not Present); Potassium 4.4 mEq/L (3.5-5.1); Total Protein 5.3 g/dL (6.4-8.9)
[2019-08-17] MEDS: Piperacillin/Tazobactam 3.375 GM in 0.9 % Sodium Chloride Mini Bag 100 ML IVPB SCH (05:04)
[2019-08-17] MEDS: Pantoprazole 40 MG VIAL IVP SCH (05:05)
[2019-08-17] MEDS: Loratadine 10 MG TABLET PO SCH (08:39)
[2019-08-17] MEDS: Cholecalciferol (D-3) 1,000 UNIT (25MCG) TABLET PO SCH (08:40)
[2019-08-17] MEDS ORDERED: Dextrose Gel 15 GM/37.5 ML TUBE PO PRN ×2 (09:07→11:32)
[2019-08-17] MEDS ORDERED: Sennosides/Docusate Sodium TABLET PO PRN ×2 (09:07→11:32)
[2019-08-17] MEDS ORDERED: Acetaminophen 325 MG TABLET PO PRN (09:07)
[2019-08-17] MEDS ORDERED: Ondansetron 4 MG/2 ML VIAL IVP PRN ×2 (09:07→11:32)
[2019-08-17] MEDS ORDERED: Naloxone 0.4 MG/ML INJ IVP PRN ×2 (09:07→11:32)
[2019-08-17] MEDS ORDERED: *HR* Dextrose 50 % in Water (Syg) 50 ML SYRINGE IVP PRN ×2 (09:07→11:32)
[2019-08-17] MEDS ORDERED: *HR* HYDROcodone/Acet 5/325 mg TABLET PO PRN (09:07)
[2019-08-17] MEDS ORDERED: *HR* LORazepam 0.5 MG TABLET PO PRN (09:07)
[2019-08-17] MEDS ORDERED: *HR* HYDROmorphone (PF) 1 MG/ML SYRINGE IVP PRN (09:07)
[2019-08-17] MEDS ORDERED: 0.9 % Sodium Chloride 250 ML IVC SCH ×2 (09:07→11:32)
[2019-08-17] MEDS ORDERED: D5% in Water 1,000 ML IVC PRN ×2 (09:07→11:32)
[2019-08-17] MEDS ORDERED: Insulin LISPRO 300 UNITS/3 ML VIAL SQ SCH ×3 (11:30→21:00)
[2019-08-17] MEDS: *HR* HYDROcodone/Acet 5/325 mg TABLET PO PRN (16:55)
[2019-08-17] MEDS ORDERED: Piperacillin/Tazobactam 3.375 GM in 0.9 % Sodium Chloride Mini Bag 100 ML IVPB SCH (18:00)
[2019-08-17] MEDS ORDERED: Pantoprazole 40 MG VIAL IVP SCH (18:00)
[2019-08-17] MEDS: QUEtiapine Fumarate 25 MG TABLET PO SCH (20:41)
[2019-08-17] MEDS ORDERED: QUEtiapine Fumarate 25 MG TABLET PO SCH (21:00)
[2019-08-17] MEDS ORDERED: DilTIAZem 50 MG in 0.9 % Sodium Chloride 40 ML IVC SCH (23:45)
[2019-08-17 23:55] LABS: Hematocrit 30.9 % (35.3-44.9); Hemoglobin 9.8 g/dL (11.5-15.4)
[2019-08-18 01:43] LABS: Basophils % 0.1 %; Hemoglobin 9.6 g/dL (11.5-15.4)
[2019-08-18 01:45] LABS: Eosinophils # 0.1 K/mcL (0.0-0.6); Eosinophils % 1.6 %; Hematocrit 30.9 % (35.3-44.9); Immature Granulocytes % 0.5 % (0-4); Immature Platelets 7.1 % (1.1-6.1); Lymphocytes # 0.7 K/mcL (0.6-4.6); Lymphocytes % 8.5 %; Mean Corpuscular HGB Conc 31.1 g/dL (31.6-35.5); Mean Corpuscular Hemoglobin 29.8 pg (28.0-33.3); Monocytes # 0.9 K/mcL (0.0-1.3); Neutrophils # 6.8 K/mcL (1.6-8.9); Nucleated Red Blood Cells 1.2 /100 WBC (0); Red Blood Count 3.22 M/mcL (3.82-4.97); Red Cell Distribution Width 16.3 % (11.5-14.5); Segmented Neutrophils % 79.3 %; White Blood Count 8.6 K/mcL (4.3-11.1)
[2019-08-18 01:50] LABS: Platelet Count 62 K/mcL (140-400)
[2019-08-18] MEDS ORDERED: Haloperidol Lactate 5 MG/ML VIAL IVP ONE (01:53)
[2019-08-18 02:14] LABS: Albumin 2.5 g/dL (3.5-5.7); Albumin/Globulin Ratio 1.1 (1.1-2.2); Bilirubin,Direct 0.4 mg/dL (0.0-0.2); Bilirubin,Indirect 0.6 mg/dL (0.0-1.0); Calcium 8.3 mg/dL (8.6-10.3); Globulin 2.2 g/dL (2.4-3.5); Magnesium 1.8 mg/dL (1.6-2.6); Phosphorous 3.5 mg/dL (2.7-4.5); Total Protein 4.7 g/dL (6.4-8.9)
[2019-08-18] MEDS: *HR* HYDROcodone/Acet 5/325 mg TABLET PO PRN ×3 (03:47→22:02)
[2019-08-18 04:39] LABS: Hematocrit 29.4 % (35.3-44.9); Hemoglobin 9.5 g/dL (11.5-15.4)
[2019-08-18] MEDS: Cholecalciferol (D-3) 1,000 UNIT (25MCG) TABLET PO SCH (08:29)
[2019-08-18] MEDS: Loratadine 10 MG TABLET PO SCH (08:29)
[2019-08-18] MEDS: Insulin LISPRO 300 UNITS/3 ML VIAL SQ SCH ×4 (08:31→22:18)
[2019-08-18] MEDS ORDERED: Cholecalciferol (D-3) 1,000 UNIT (25MCG) TABLET PO SCH (09:00)
[2019-08-18] MEDS ORDERED: Loratadine 10 MG TABLET PO SCH (09:00)
[2019-08-18] MEDS ORDERED: Pantoprazole 40 MG VIAL IVP SCH ×2 (09:00)
[2019-08-18] MEDS: QUEtiapine Fumarate 25 MG TABLET PO SCH (22:02)
[2019-08-18] MEDS: Pantoprazole 40 MG VIAL IVP SCH (22:03)
[2019-08-19 00:15] LABS: Bilirubin,Urine Negative (Negative); Blood,Urine Small (Negative); Clarity,Urine Clear (Clear); Color,Urine Yellow (Yellow); Glucose,Urine (UA) 250 mg/dL (Normal); Ketones,Urine Trace mg/dL (Negative); Leukocyte Esterase,Urine Negative (Negative); Nitrite,Urine Negative (Negative); Protein,Urine 30 mg/dL (Neg-Trace); Specific Gravity,Urine 1.018 (1.010-1.025); Urobilinogen,Urine Normal (Normal)
[2019-08-19 00:20] LABS: Bacteria,Urine None Seen per hpf (None-Few); Hyaline Casts,Urine None Seen per lpf (None-Few); Squamous Epithelial Cell,Urine Many per lpf (None-Few); WBC,Urine 0-3 per hpf (0-3)
[2019-08-19 03:31] LABS: Basophils % 0.2 %; Hemoglobin 9.6 g/dL (11.5-15.4); Red Cell Distribution Width 15.8 % (11.5-14.5)
[2019-08-19 03:32] LABS: INR 1.2; Prothrombin Time 13.7 Seconds (9.4-12.1)
[2019-08-19 03:33] LABS: Eosinophils # 0.1 K/mcL (0.0-0.6); Eosinophils % 2.1 %; Hematocrit 31.4 % (35.3-44.9); Immature Granulocytes % 0.9 % (0-4); Immature Platelets 7.5 % (1.1-6.1); Lymphocytes # 0.8 K/mcL (0.6-4.6); Lymphocytes % 13.8 %; Mean Corpuscular HGB Conc 30.6 g/dL (31.6-35.5); Mean Corpuscular Volume 94.9 fL (83.0-100.0); Mean Platelet Volume 11.1 fL (9.4-12.4); Monocytes # 0.9 K/mcL (0.0-1.3); Monocytes % 15.6 %; Neutrophils # 3.9 K/mcL (1.6-8.9); Red Blood Count 3.31 M/mcL (3.82-4.97); Segmented Neutrophils % 67.4 %; White Blood Count 5.8 K/mcL (4.3-11.1)
[2019-08-19 03:36] LABS: Platelet Count 62 K/mcL (140-400)
[2019-08-19 03:44] LABS: Albumin 2.5 g/dL (3.5-5.7); Albumin/Globulin Ratio 1.2 (1.1-2.2); Bilirubin,Direct 0.3 mg/dL (0.0-0.2); Bilirubin,Indirect 0.5 mg/dL (0.0-1.0); Bilirubin,Total 0.8 mg/dL (0.3-1.0); Calcium 8.1 mg/dL (8.6-10.3); Globulin 2.1 g/dL (2.4-3.5); Magnesium 1.5 mg/dL (1.6-2.6); Phosphorous 3.3 mg/dL (2.7-4.5); Potassium 3.9 mEq/L (3.5-5.1); Total Protein 4.6 g/dL (6.4-8.9)
[2019-08-19] MEDS: Loratadine 10 MG TABLET PO SCH (07:16)
[2019-08-19] MEDS: Cholecalciferol (D-3) 1,000 UNIT (25MCG) TABLET PO SCH (07:17)
[2019-08-19] MEDS: Pantoprazole 40 MG VIAL IVP SCH ×2 (07:17→20:05)
[2019-08-19] MEDS: Insulin LISPRO 300 UNITS/3 ML VIAL SQ SCH ×4 (08:27→21:07)
[2019-08-19] MEDS: *HR* HYDROcodone/Acet 5/325 mg TABLET PO PRN ×3 (11:07→23:50)
[2019-08-19] MEDS: QUEtiapine Fumarate 25 MG TABLET PO SCH (20:06)
[2019-08-19] MEDS: *HR* LORazepam 0.5 MG TABLET PO PRN (23:50)
[2019-08-20 04:05] LABS: Basophils % 0.2 %; Calcium 7.8 mg/dL (8.6-10.3); Eosinophils # 0.1 K/mcL (0.0-0.6); Eosinophils % 1.9 %; Hematocrit 30.3 % (35.3-44.9); Hemoglobin 9.6 g/dL (11.5-15.4); Immature Granulocytes % 0.8 % (0-4); Immature Platelets 5.1 % (1.1-6.1); Lymphocytes # 0.7 K/mcL (0.6-4.6); Lymphocytes % 10.5 %; Magnesium 1.6 mg/dL (1.6-2.6); Mean Corpuscular HGB Conc 31.7 g/dL (31.6-35.5); Mean Corpuscular Hemoglobin 30.1 pg (28.0-33.3); Mean Platelet Volume 11.2 fL (9.4-12.4); Monocytes # 1.1 K/mcL (0.0-1.3); Monocytes % 16.3 %; Nucleated Red Blood Cells 0.3 /100 WBC (0); Potassium 3.7 mEq/L (3.5-5.1); Red Blood Count 3.19 M/mcL (3.82-4.97); Red Cell Distribution Width 15.4 % (11.5-14.5); Segmented Neutrophils % 70.3 %; White Blood Count 6.5 K/mcL (4.3-11.1)
[2019-08-20 04:07] LABS: Neutrophils # 4.6 K/mcL (1.6-8.9); Platelet Count 76 K/mcL (140-400)
[2019-08-20] MEDS: Acetaminophen 325 MG TABLET PO PRN ×2 (04:28→22:27)
[2019-08-20] MEDS: *HR* HYDROcodone/Acet 5/325 mg TABLET PO PRN ×3 (06:13→18:36)
[2019-08-20] MEDS: Loratadine 10 MG TABLET PO SCH (11:09)
[2019-08-20] MEDS: Metoprolol XL (24 HR) Succ 50 MG TAB.ER.24H PO SCH ×2 (11:10→19:41)
[2019-08-20] MEDS: Cholecalciferol (D-3) 1,000 UNIT (25MCG) TABLET PO SCH (11:10)
[2019-08-20] MEDS: Insulin LISPRO 300 UNITS/3 ML VIAL SQ SCH ×4 (11:11→20:19)
[2019-08-20] MEDS: Pantoprazole 40 MG VIAL IVP SCH ×2 (11:11→19:41)
[2019-08-20] MEDS: Apixaban 5 MG TABLET PO SCH (19:40)
[2019-08-20] MEDS: QUEtiapine Fumarate 25 MG TABLET PO SCH (19:41)
[2019-08-20] MEDS: *HR* LORazepam 0.5 MG TABLET PO PRN (22:28)
[2019-08-21] MEDS: *HR* HYDROcodone/Acet 5/325 mg TABLET PO PRN ×3 (02:25→18:18)
[2019-08-21 03:50] LABS: Hematocrit 31.6 % (35.3-44.9); Hemoglobin 10.1 g/dL (11.5-15.4)
[2019-08-21 04:08] LABS: Calcium 7.8 mg/dL (8.6-10.3); Magnesium 1.5 mg/dL (1.6-2.6); Potassium 3.8 mEq/L (3.5-5.1)
[2019-08-21 08:03] LABS: Red Blood Count 3.39 M/mcL (3.82-4.97); Red Cell Distribution Width 15.5 % (11.5-14.5)
[2019-08-21 08:05] LABS: Immature Platelets 8.3 % (1.1-6.1); Mean Corpuscular HGB Conc 31.5 g/dL (31.6-35.5); Mean Corpuscular Hemoglobin 29.5 pg (28.0-33.3); Mean Corpuscular Volume 93.5 fL (83.0-100.0); Mean Platelet Volume 11.9 fL (9.4-12.4)
[2019-08-21] MEDS: Cholecalciferol (D-3) 1,000 UNIT (25MCG) TABLET PO SCH (09:51)
[2019-08-21] MEDS: Metoprolol XL (24 HR) Succ 50 MG TAB.ER.24H PO SCH (09:51)
[2019-08-21] MEDS: Loratadine 10 MG TABLET PO SCH (09:51)
[2019-08-21] MEDS: Apixaban 5 MG TABLET PO SCH ×2 (09:52→20:37)
[2019-08-21] MEDS: Insulin LISPRO 300 UNITS/3 ML VIAL SQ SCH ×4 (09:53→20:46)
[2019-08-21] MEDS: Pantoprazole 40 MG VIAL IVP SCH ×2 (09:54→20:43)
[2019-08-21] MEDS: Acetaminophen 325 MG TABLET PO PRN (13:31)
[2019-08-21] MEDS: *HR* LORazepam 0.5 MG TABLET PO PRN (18:18)
[2019-08-21] MEDS: QUEtiapine Fumarate 25 MG TABLET PO SCH (20:37)
[2019-08-22] MEDS: *HR* HYDROcodone/Acet 5/325 mg TABLET PO PRN ×3 (02:02→18:22)
[2019-08-22] MEDS ORDERED: *HR* LORazepam 2 MG/ML VIAL IVP ONE (02:26)
[2019-08-22 03:17] LABS: Hematocrit 31.4 % (35.3-44.9); Hemoglobin 9.8 g/dL (11.5-15.4); Mean Corpuscular HGB Conc 31.2 g/dL (31.6-35.5); Mean Corpuscular Hemoglobin 29.3 pg (28.0-33.3); Mean Platelet Volume 10.7 fL (9.4-12.4); Platelet Count 112 K/mcL (140-400); Red Blood Count 3.34 M/mcL (3.82-4.97); Red Cell Distribution Width 15.2 % (11.5-14.5)
[2019-08-22 03:26] LABS: Calcium 7.9 mg/dL (8.6-10.3); Magnesium 1.6 mg/dL (1.6-2.6); Potassium 3.6 mEq/L (3.5-5.1)
[2019-08-22] MEDS: Insulin LISPRO 300 UNITS/3 ML VIAL SQ SCH ×4 (09:11→20:31)
[2019-08-22] MEDS: Loratadine 10 MG TABLET PO SCH (09:12)
[2019-08-22] MEDS: Cholecalciferol (D-3) 1,000 UNIT (25MCG) TABLET PO SCH (09:12)
[2019-08-22] MEDS: Apixaban 5 MG TABLET PO SCH ×2 (09:13→20:30)
[2019-08-22] MEDS: predniSONE 20 MG TABLET PO SCH (09:13)
[2019-08-22] MEDS: polyethylene glycoL 3350 17 GM POWD.PACK PO SCH (12:41)
[2019-08-22] MEDS: Acetaminophen 325 MG TABLET PO PRN (16:32)
[2019-08-22] MEDS: *HR* LORazepam 0.5 MG TABLET PO PRN (23:26)
[2019-08-23] MEDS: *HR* HYDROcodone/Acet 5/325 mg TABLET PO PRN ×2 (05:54→12:19)
[2019-08-23] MEDS: Insulin LISPRO 300 UNITS/3 ML VIAL SQ SCH ×2 (08:00→12:20)
[2019-08-23] MEDS: polyethylene glycoL 3350 17 GM POWD.PACK PO SCH (09:20)
[2019-08-23] MEDS: Loratadine 10 MG TABLET PO SCH (09:20)
[2019-08-23] MEDS: Apixaban 5 MG TABLET PO SCH (09:21)
[2019-08-23] MEDS: predniSONE 20 MG TABLET PO SCH (09:21)
[2019-08-23] MEDS: Cholecalciferol (D-3) 1,000 UNIT (25MCG) TABLET PO SCH (09:21)
[2019-08-23 10:51] LABS: Bilirubin,Urine Negative (Negative); Blood,Urine Trace (Negative); Clarity,Urine Clear (Clear); Color,Urine Yellow (Yellow); Glucose,Urine (UA) >=1000 mg/dL (Normal); Ketones,Urine Negative (Negative); Leukocyte Esterase,Urine Small (Negative); Nitrite,Urine Negative (Negative); Protein,Urine Trace mg/dL (Neg-Trace); Specific Gravity,Urine 1.016 (1.010-1.025); Urobilinogen,Urine Normal (Normal)
[2019-08-23 10:52] LABS: Bacteria,Urine Few per hpf (None-Few); Hyaline Casts,Urine None Seen per lpf (None-Few); Squamous Epithelial Cell,Urine Many per lpf (None-Few)
[2019-08-23 11:32] VITALS: BP 148/84
== END 2019-08-23 13:00 | DRG 480 ==
LOC: 3NENU → SUATTDRO 02:05 → ICNU 08-14 16:24 → 2ANU 08-17 12:11
PROVIDERS: ADMIT Internal Medicine; ATTEND Internal Medicine

== ENCOUNTER 2021-01-01 07:00 | Inpatient (IN) ==
[2021-01-16] MEDS ORDERED: Naloxone 0.4 MG/ML INJ IVP PRN (18:36)
[2021-01-16] MEDS ORDERED: Melatonin 3 MG TABLET PO PRN (18:36)
[2021-01-16] MEDS ORDERED: D5% in Water 1,000 ML IVC PRN (18:44)
[2021-01-16] MEDS ORDERED: *HR* Dextrose 50 % in Water (Syg) 50 ML SYRINGE IVP PRN (18:44)
[2021-01-16] MEDS ORDERED: Dextrose Gel 15 GM/37.5 ML TUBE PO PRN ×2 (18:44)
[2021-01-16] MEDS ORDERED: *HR* Heparin 5,000 UNIT/ML VIAL IVP ONE (19:47)
[2021-01-16] MEDS ORDERED: *HR* Heparin 5,000 UNIT/ML VIAL IVP PRN ×2 (19:47)
[2021-01-16] MEDS ORDERED: Albuterol 2.5 MG/3 ML NEBULIZER IH PRN (19:50)
[2021-01-16] MEDS ORDERED: Heparin 25,000UNIT/250ML 1/2NS 25,000 UNIT/250 ML IV.SOLN IVC SCH (20:00)
[2021-01-16 20:53] LABS: Hematocrit 33.9 % (35.3-44.9); Hemoglobin 10.2 g/dL (11.5-15.4); Mean Corpuscular HGB Conc 30.1 g/dL (31.6-35.5); Mean Corpuscular Hemoglobin 27.1 pg (28.0-33.3); Mean Corpuscular Volume 90.2 fL (83.0-100.0); Mean Platelet Volume 10.4 fL (9.4-12.4); Platelet Count 232 K/mcL (140-400); Red Blood Count 3.76 M/mcL (3.82-4.97); Red Cell Distribution Width 13.9 % (11.5-14.5); White Blood Count 4.4 K/mcL (4.3-11.1)
[2021-01-16 21:00] LABS: Heparin anti-factor XA UFH 0.59 IU/mL (0.30-0.70)
[2021-01-16 21:01] LABS: INR 1.2; Prothrombin Time 13.1 Seconds (9.4-12.1)
[2021-01-16 21:12] LABS: BUN/Creatinine Ratio 12 (6-26); Blood Urea Nitrogen 11 mg/dL (8-23); Calcium 9.1 mg/dL (8.6-10.3); Carbon Dioxide 27 mEq/L (23-29); Chloride 101 mEq/L (98-107); Glucose 99 mg/dL (70-105); Osmolality,Calculated 281 (280-300); Potassium 3.5 mEq/L (3.5-5.1); Sodium 136 mEq/L (136-145); eGFR For African Americans > 60 (> 60); eGFR For Non-African Americans 59 (> 60)
[2021-01-16] MEDS: *HR* LORazepam 0.5 MG TABLET PO SCH (21:33)
[2021-01-17] MEDS: Insulin LISPRO 300 UNITS/3 ML VIAL SUBQ SCH ×3 (01:11→11:48)
[2021-01-17] MEDS: Budesonide/Formoterol 160/4.5 1 PUFF INH IH SCH ×3 (01:19→22:56)
[2021-01-17 02:51] LABS: BUN/Creatinine Ratio 11 (6-26); Blood Urea Nitrogen 10 mg/dL (8-23); Carbon Dioxide 28 mEq/L (23-29); Chloride 103 mEq/L (98-107); Glucose 116 mg/dL (70-105); Magnesium 1.8 mg/dL (1.6-2.6); Osmolality,Calculated 286 (280-300); Potassium 3.6 mEq/L (3.5-5.1); Sodium 138 mEq/L (136-145); eGFR For African Americans > 60 (> 60); eGFR For Non-African Americans > 60 (> 60)
[2021-01-17 03:20] LABS: INR 1.3; Prothrombin Time 14.5 Seconds (9.4-12.1)
[2021-01-17 03:41] LABS: Hematocrit 31.8 % (35.3-44.9); Hemoglobin 9.4 g/dL (11.5-15.4); Lymphocytes # 1.8 K/mcL (0.6-4.6); Lymphocytes % 42.1 %; Mean Corpuscular HGB Conc 29.6 g/dL (31.6-35.5); Mean Corpuscular Hemoglobin 27.2 pg (28.0-33.3); Mean Corpuscular Volume 92.2 fL (83.0-100.0); Mean Platelet Volume 11.4 fL (9.4-12.4); Neutrophils # 1.7 K/mcL (1.6-8.9); Platelet Count 166 K/mcL (140-400); Red Blood Count 3.45 M/mcL (3.82-4.97); Red Cell Distribution Width 13.9 % (11.5-14.5); Segmented Neutrophils % 39.7 %; White Blood Count 4.2 K/mcL (4.3-11.1)
[2021-01-17 03:42] LABS: Basophils % 0.9 %; Eosinophils # 0.3 K/mcL (0.0-0.6); Eosinophils % 6.4 %; Monocytes # 0.5 K/mcL (0.0-1.3); Monocytes % 10.9 %
[2021-01-17] MEDS ORDERED: TOTAL JOINT MIXTURE (100ML) INTRAART ONE (06:00)
[2021-01-17] MEDS ORDERED: Povidone-Iodine 45 ML, Sodium Chloride IRRigation 1,000 ML IR ONE (06:00)
[2021-01-17] MEDS: Heparin 25,000UNIT/250ML 1/2NS 25,000 UNIT/250 ML IV.SOLN IVC SCH (07:46)
[2021-01-17] MEDS: Furosemide 20 MG TABLET PO SCH (08:52)
[2021-01-17] MEDS ORDERED: Famotidine 20 MG TABLET PO ONE (11:00)
[2021-01-17] MEDS ORDERED: CeFAZolin Syr 2,000MG/20 ML 2,000 MG/20 ML SYRINGE IVPB ONE ×2 (12:06→12:24)
[2021-01-17] MEDS ORDERED: Ringers Solution, Lactated 1,000 ML IVC SCH (12:15)
[2021-01-17] MEDS ORDERED: Albuterol 2.5 MG/3 ML NEBULIZER IH ONE (12:18)
[2021-01-17] MEDS ORDERED: Gentamicin 310 MG in 0.9 % Sodium Chloride 100 ML IVPB ONE (12:20)
[2021-01-17] MEDS ORDERED: Heparin 1,000 UNITS/500 mL 500 ML ONE (12:21)
[2021-01-17] MEDS ORDERED: Acetaminophen IV 1,000 MG/100 ML BAG IVPB ONE (12:26)
[2021-01-17] MEDS ORDERED: Ipratropium/Albuterol Neb 3 ML ONE (12:31)
[2021-01-17] MEDS ORDERED: Ipratropium/Albuterol Neb 3 ML IH ONE (12:33)
[2021-01-17] MEDS ORDERED: *HR* FentaNYL (PF) 100 MCG/2 ML VIAL ONE ×2 (12:34→15:31)
[2021-01-17] MEDS ORDERED: *HR* Propofol 200 MG/20 ML VIAL IVP ONE (12:35)
[2021-01-17] MEDS ORDERED: Lidocaine -MPF 2% 5 ML VIAL ONE (12:59)
[2021-01-17] MEDS ORDERED: *HR* Succinylcholine 200 MG/10 ML VIAL IVP ONE (12:59)
[2021-01-17] MEDS ORDERED: *HR* FentaNYL (PF) 100 MCG/2 ML VIAL IVP PRN ×2 (13:00→19:40)
[2021-01-17] MEDS ORDERED: Ondansetron 4 MG/2 ML VIAL IVP PRN (13:00)
[2021-01-17] MEDS ORDERED: *HR* HYDROmorphone PF 0.5 MG/0.5 ML SYRINGE IVP PRN (13:00)
[2021-01-17] MEDS ORDERED: Vancomycin 1,000 MG VIAL ONE (13:17)
[2021-01-17] MEDS ORDERED: *HR* Rocuronium Bromide 50 MG/5 ML VIAL ONE ×2 (14:22→15:57)
[2021-01-17] MEDS ORDERED: Tranexamic Acid 1,000 MG/10 ML VIAL ONE (14:24)
[2021-01-17] MEDS ORDERED: Ethanol\\Acetic Acid\\Na Ace\\Ben 1,000 ML IRRIG.SOLN IR ONE (14:41)
[2021-01-17] MEDS ORDERED: *HR* HYDROMORPHONE 2 MG/ML VIAL ONE (15:52)
[2021-01-17] MEDS ORDERED: Albumin Human 5% 12.5 GM/250 ML IV.SOLN ONE (16:01)
[2021-01-17 16:56] LABS: ABG Base Excess -3 mEq/L (-2 to 3); ABG Chloride 105 mEq/L (98-107); ABG Glucose 312 mg/dL (60-95); ABG HCO3 24 mEq/L (21-27); ABG Oxygen Saturation 98 % (95-98); ABG PCO2 50 mmHg (35-45); ABG PH 7.29 pH Units (7.32-7.45); ABG PO2 109 mmHg (85-104); ABG TCO2 25 mEq/L (20-26)
[2021-01-17 18:04] LABS: ABG Base Excess -3 mEq/L (-2 to 3); ABG Chloride 106 mEq/L (98-107); ABG Glucose 266 mg/dL (60-95); ABG HCO3 24 mEq/L (21-27); ABG Ionized Calcium 1.15 mmol/L (1.15-1.35); ABG Oxygen Saturation 99 % (95-98); ABG PCO2 50 mmHg (35-45); ABG PH 7.29 pH Units (7.32-7.45); ABG PO2 165 mmHg (85-104); ABG TCO2 26 mEq/L (20-26)
[2021-01-17] MEDS ORDERED: *HR* Metoprolol 5 MG/5 ML VIAL IVP PRN ×2 (19:40→22:57)
[2021-01-17] MEDS ORDERED: Promethazine 6.25 MG in Water for inj. (sterile) 20 ML IVPB PRN (19:40)
[2021-01-17] MEDS ORDERED: *HR* Metoprolol 5 MG/5 ML VIAL IVP ONE (20:22)
[2021-01-17 20:28] LABS: Basophils % 0.4 %; Hematocrit 35.8 % (35.3-44.9); Hemoglobin 11.3 g/dL (11.5-15.4); Immature Granulocytes % 0.5 % (0-4); Lymphocytes # 0.5 K/mcL (0.6-4.6); Lymphocytes % 5.9 %; Mean Corpuscular HGB Conc 31.6 g/dL (31.6-35.5); Mean Corpuscular Hemoglobin 27.8 pg (28.0-33.3); Mean Platelet Volume 10.2 fL (9.4-12.4); Monocytes # 0.1 K/mcL (0.0-1.3); Monocytes % 1.7 %; Neutrophils # 7.1 K/mcL (1.6-8.9); Nucleated Red Blood Cells 0.3 /100 WBC (0); Platelet Count 233 K/mcL (140-400); Red Blood Count 4.07 M/mcL (3.82-4.97); Red Cell Distribution Width 14.8 % (11.5-14.5); Segmented Neutrophils % 91.5 %
[2021-01-17 20:29] LABS: White Blood Count 7.8 K/mcL (4.3-11.1)
[2021-01-17 20:45] LABS: BUN/Creatinine Ratio 11 (6-26); Blood Urea Nitrogen 10 mg/dL (8-23); Calcium 8.4 mg/dL (8.6-10.3); Carbon Dioxide 20 mEq/L (23-29); Chloride 104 mEq/L (98-107); Glucose 280 mg/dL (70-105); Osmolality,Calculated 289 (280-300); Sodium 135 mEq/L (136-145); Troponin I < 0.03 ng/mL (< 0.04); eGFR For African Americans > 60 (> 60); eGFR For Non-African Americans 58 (> 60)
[2021-01-17] MEDS: *HR* HYDROmorphone PF 0.5 MG/0.5 ML SYRINGE IVP PRN ×2 (20:54→20:59)
[2021-01-17] MEDS: Norepinephrine 4 MG/254 ML IV.SOLN IVC SCH (23:20)
[2021-01-17] MEDS: CeFAZolin 2 GM/120 ML BAG IVPB SCH (23:32)
[2021-01-18] MEDS: *HR* LORazepam 0.5 MG TABLET PO SCH ×2 (01:59→17:18)
[2021-01-18] MEDS: Insulin LISPRO 300 UNITS/3 ML VIAL SUBQ SCH ×5 (01:59→20:49)
[2021-01-18] MEDS: Norepinephrine 4 MG/254 ML IV.SOLN IVC SCH ×2 (02:00→08:57)
[2021-01-18 03:35] LABS: VBG Ionized Calcium 1.24 mmol/L (1.15-1.35)
[2021-01-18 03:49] LABS: Hematocrit 31.9 % (35.3-44.9); Hemoglobin 9.8 g/dL (11.5-15.4); Mean Corpuscular HGB Conc 30.7 g/dL (31.6-35.5); Mean Corpuscular Hemoglobin 27.1 pg (28.0-33.3); Mean Corpuscular Volume 88.1 fL (83.0-100.0); Mean Platelet Volume 10.7 fL (9.4-12.4); Platelet Count 202 K/mcL (140-400); Red Blood Count 3.62 M/mcL (3.82-4.97); Red Cell Distribution Width 15.5 % (11.5-14.5); White Blood Count 7.7 K/mcL (4.3-11.1)
[2021-01-18 03:50] LABS: Calcium 8.5 mg/dL (8.6-10.3); Magnesium 1.6 mg/dL (1.6-2.6); Potassium 4.4 mEq/L (3.5-5.1)
[2021-01-18 04:10] LABS: INR 1.3; Prothrombin Time 14.5 Seconds (9.4-12.1)
[2021-01-18] MEDS: Furosemide 20 MG TABLET PO SCH (08:57)
[2021-01-18] MEDS: Heparin 25,000UNIT/250ML 1/2NS 25,000 UNIT/250 ML IV.SOLN IVC SCH ×3 (08:58→13:06)
[2021-01-18] MEDS ORDERED: NON-FORMULARY MEDICATION 1 EACH EACH (Duloxetine Hcl [Cymbalta] 60 MG Capsule.Dr) PO SCH (09:00)
[2021-01-18] MEDS: CeFAZolin 2 GM/120 ML BAG IVPB SCH (10:32)
[2021-01-18] MEDS: Budesonide/Formoterol 160/4.5 1 PUFF INH IH SCH ×2 (11:31→23:23)
[2021-01-18 11:51] LABS: Hematocrit 29.4 % (35.3-44.9); Hemoglobin 9.3 g/dL (11.5-15.4)
[2021-01-18] MEDS ORDERED: Naloxone 0.4 MG/ML INJ IVP PRN (12:32)
[2021-01-18] MEDS ORDERED: *HR* Dextrose 50 % in Water (Syg) 50 ML SYRINGE IVP PRN (12:32)
[2021-01-18] MEDS ORDERED: *HR* Heparin 5,000 UNIT/ML VIAL IVP PRN (12:32)
[2021-01-18] MEDS ORDERED: *HR* Metoprolol 5 MG/5 ML VIAL IVP PRN (12:32)
[2021-01-18] MEDS ORDERED: Albuterol 2.5 MG/3 ML NEBULIZER IH PRN (12:32)
[2021-01-18] MEDS ORDERED: Dextrose Gel 15 GM/37.5 ML TUBE PO PRN ×2 (12:32)
[2021-01-18] MEDS ORDERED: D5% in Water 1,000 ML IVC PRN (12:32)
[2021-01-18] MEDS ORDERED: Melatonin 3 MG TABLET PO PRN (12:32)
[2021-01-18] MEDS: *HR* Heparin 5,000 UNIT/ML VIAL IVP PRN (21:51)
[2021-01-19] MEDS: Insulin LISPRO 300 UNITS/3 ML VIAL SUBQ SCH ×4 (01:18→17:17)
[2021-01-19 04:46] LABS: Hematocrit 25.4 % (35.3-44.9); Hemoglobin 8.1 g/dL (11.5-15.4); Mean Corpuscular HGB Conc 31.9 g/dL (31.6-35.5); Mean Corpuscular Hemoglobin 28.2 pg (28.0-33.3); Mean Corpuscular Volume 88.5 fL (83.0-100.0); Mean Platelet Volume 9.8 fL (9.4-12.4); Platelet Count 179 K/mcL (140-400); Red Blood Count 2.87 M/mcL (3.82-4.97); Red Cell Distribution Width 15.3 % (11.5-14.5)
[2021-01-19 05:07] LABS: BUN/Creatinine Ratio 22 (6-26); Blood Urea Nitrogen 22 mg/dL (8-23); Calcium 8.5 mg/dL (8.6-10.3); Carbon Dioxide 27 mEq/L (23-29); Chloride 103 mEq/L (98-107); Glucose 159 mg/dL (70-105); Osmolality,Calculated 287 (280-300); Potassium 3.9 mEq/L (3.5-5.1); Sodium 135 mEq/L (136-145); eGFR For African Americans > 60 (> 60); eGFR For Non-African Americans 55 (> 60)
[2021-01-19] MEDS: Budesonide/Formoterol 160/4.5 1 PUFF INH IH SCH ×2 (07:57→22:55)
[2021-01-19] MEDS: Furosemide 20 MG TABLET PO SCH (09:09)
[2021-01-19] MEDS: Heparin 25,000UNIT/250ML 1/2NS 25,000 UNIT/250 ML IV.SOLN IVC SCH (15:12)
[2021-01-19] MEDS: *HR* LORazepam 0.5 MG TABLET PO SCH (16:46)
[2021-01-19] MEDS ORDERED: Perflutren Lipid Microsphere 1.3 ML in 0.9 % Sodium Chloride 8.7 ML IVP PRN (18:58)
[2021-01-20] MEDS: Insulin LISPRO 300 UNITS/3 ML VIAL SUBQ SCH ×4 (00:42→18:06)
[2021-01-20 06:52] LABS: Hematocrit 24.1 % (35.3-44.9); Hemoglobin 7.5 g/dL (11.5-15.4); Mean Corpuscular HGB Conc 31.1 g/dL (31.6-35.5); Mean Corpuscular Hemoglobin 28.1 pg (28.0-33.3); Mean Corpuscular Volume 90.3 fL (83.0-100.0); Mean Platelet Volume 10.4 fL (9.4-12.4); Platelet Count 185 K/mcL (140-400); Red Blood Count 2.67 M/mcL (3.82-4.97); Red Cell Distribution Width 15.1 % (11.5-14.5); White Blood Count 8.1 K/mcL (4.3-11.1)
[2021-01-20] MEDS: Budesonide/Formoterol 160/4.5 1 PUFF INH IH SCH ×2 (07:44→21:39)
[2021-01-20 07:58] LABS: BUN/Creatinine Ratio 21 (6-26); Blood Urea Nitrogen 16 mg/dL (8-23); Calcium 8.5 mg/dL (8.6-10.3); Carbon Dioxide 31 mEq/L (23-29); Chloride 100 mEq/L (98-107); Glucose 170 mg/dL (70-105); Osmolality,Calculated 285 (280-300); Potassium 3.8 mEq/L (3.5-5.1); Sodium 135 mEq/L (136-145); eGFR For African Americans > 60 (> 60); eGFR For Non-African Americans > 60 (> 60)
[2021-01-20] MEDS: *HR* Heparin 5,000 UNIT/ML VIAL IVP PRN (09:46)
[2021-01-20] MEDS: Furosemide 20 MG TABLET PO SCH (09:47)
[2021-01-20] MEDS ORDERED: polyethylene glycoL 3350 17 GM POWD.PACK PO PRN (10:44)
[2021-01-20] MEDS: Sennosides/Docusate Sodium TABLET PO SCH ×2 (11:14→21:15)
[2021-01-20] MEDS: Heparin 25,000UNIT/250ML 1/2NS 25,000 UNIT/250 ML IV.SOLN IVC SCH ×2 (12:11→21:20)
[2021-01-20] MEDS: *HR* LORazepam 0.5 MG TABLET PO SCH (18:03)
[2021-01-21] MEDS: Heparin 25,000UNIT/250ML 1/2NS 25,000 UNIT/250 ML IV.SOLN IVC SCH (00:34)
[2021-01-21] MEDS: Insulin LISPRO 300 UNITS/3 ML VIAL SUBQ SCH ×4 (06:38→17:14)
[2021-01-21 07:07] LABS: Hematocrit 21.4 % (35.3-44.9); Hemoglobin 6.7 g/dL (11.5-15.4); Mean Corpuscular HGB Conc 31.3 g/dL (31.6-35.5); Mean Corpuscular Hemoglobin 28.3 pg (28.0-33.3); Mean Corpuscular Volume 90.3 fL (83.0-100.0); Mean Platelet Volume 10.3 fL (9.4-12.4); Platelet Count 175 K/mcL (140-400); Red Blood Count 2.37 M/mcL (3.82-4.97); Red Cell Distribution Width 15.1 % (11.5-14.5); White Blood Count 6.7 K/mcL (4.3-11.1)
[2021-01-21 07:37] LABS: BUN/Creatinine Ratio 19 (6-26); Blood Urea Nitrogen 15 mg/dL (8-23); Calcium 8.3 mg/dL (8.6-10.3); Carbon Dioxide 32 mEq/L (23-29); Chloride 99 mEq/L (98-107); Glucose 154 mg/dL (70-105); Osmolality,Calculated 284 (280-300); Potassium 3.7 mEq/L (3.5-5.1); Sodium 135 mEq/L (136-145); eGFR For African Americans > 60 (> 60); eGFR For Non-African Americans > 60 (> 60)
[2021-01-21] MEDS: Budesonide/Formoterol 160/4.5 1 PUFF INH IH SCH ×2 (08:12→21:22)
[2021-01-21] MEDS: Furosemide 20 MG TABLET PO SCH (08:16)
[2021-01-21] MEDS: Sennosides/Docusate Sodium TABLET PO SCH ×2 (08:17→21:26)
[2021-01-21 09:17] LABS: Hematocrit 21.4 % (35.3-44.9); Hemoglobin 6.7 g/dL (11.5-15.4)
[2021-01-21] MEDS ORDERED: 0.9 % Sodium Chloride 250 ML ONE (13:48)
[2021-01-21] MEDS: *HR* LORazepam 0.5 MG TABLET PO SCH (17:14)
[2021-01-21] MEDS ORDERED: 0.9 % Sodium Chloride 250 ML IVC SCH (17:30)
[2021-01-21] MEDS: Ringers Solution, Lactated 1,000 ML IVC SCH (18:37)
[2021-01-21 19:21] LABS: Hematocrit 25.7 % (35.3-44.9)
[2021-01-21 19:22] LABS: Hemoglobin 8.3 g/dL (11.5-15.4)
[2021-01-22 00:39] LABS: Hematocrit 25.1 % (35.3-44.9); Hemoglobin 7.9 g/dL (11.5-15.4)
[2021-01-22] MEDS: Insulin LISPRO 300 UNITS/3 ML VIAL SUBQ SCH ×3 (00:51→12:15)
[2021-01-22 05:08] LABS: Hematocrit 28.4 % (35.3-44.9); Hemoglobin 9.2 g/dL (11.5-15.4)
[2021-01-22] MEDS: Budesonide/Formoterol 160/4.5 1 PUFF INH IH SCH ×2 (07:46→22:42)
[2021-01-22] MEDS: Ringers Solution, Lactated 1,000 ML IVC SCH (08:23)
[2021-01-22] MEDS: Furosemide 20 MG TABLET PO SCH (08:24)
[2021-01-22] MEDS: Sennosides/Docusate Sodium TABLET PO SCH ×2 (08:24→22:42)
[2021-01-22] MEDS ORDERED: *HR* Propofol 200 MG/20 ML VIAL IVP ONE (09:45)
[2021-01-22] MEDS ORDERED: *HR* FentaNYL (PF) 100 MCG/2 ML VIAL ONE ×2 (09:45→13:27)
[2021-01-22] MEDS ORDERED: Ondansetron 4 MG/2 ML VIAL ONE ×2 (09:51→19:14)
[2021-01-22] MEDS ORDERED: Lidocaine -MPF 2% 5 ML VIAL ONE ×2 (09:51→11:24)
[2021-01-22] MEDS ORDERED: Povidone-Iodine 45 ML, Sodium Chloride IRRigation 1,000 ML IR ONE (10:15)
[2021-01-22] MEDS ORDERED: Lidocaine HCL 4 ML Topical Solution (Laryng-O-Jet Kit Sterile Pak) TP ONE (10:40)
[2021-01-22] MEDS ORDERED: *HR* Rocuronium Bromide 50 MG/5 ML VIAL ONE ×2 (10:42→13:10)
[2021-01-22] MEDS ORDERED: Famotidine 20 MG/2 ML VIAL IVP ONE (10:53)
[2021-01-22] MEDS ORDERED: *HR* OxyCODONE Immed Rel 5 MG TABLET PO PRN (10:53)
[2021-01-22] MEDS ORDERED: Ondansetron 4 MG/2 ML VIAL IVP PRN ×2 (10:53→19:46)
[2021-01-22] MEDS ORDERED: *HR* HYDROmorphone PF 0.5 MG/0.5 ML SYRINGE IVP PRN (10:53)
[2021-01-22] MEDS ORDERED: EPHEDrine 50 MG/ML VIAL ONE (10:59)
[2021-01-22] MEDS ORDERED: Acetaminophen IV 1,000 MG/100 ML BAG IVPB ONE (11:00)
[2021-01-22] MEDS ORDERED: *HR* Norepinephrine 4 MG/4 ML VIAL IVC ONE (11:03)
[2021-01-22] MEDS ORDERED: *HR* Vasopressin 20 UNIT/ML VIAL ONE (11:04)
[2021-01-22] MEDS ORDERED: Ethanol\\Acetic Acid\\Na Ace\\Ben 1,000 ML IRRIG.SOLN IR ONE ×2 (11:06→12:34)
[2021-01-22] MEDS ORDERED: Heparin 1,000 UNITS/500 mL 500 ML ONE (11:22)
[2021-01-22] MEDS ORDERED: SODIUM CHLORIDE 0.9% IVPB ONE (12:16)
[2021-01-22] MEDS ORDERED: GENTAMICIN IVPB ONE (12:16)
[2021-01-22] MEDS ORDERED: Tranexamic Acid 1,000 MG/10 ML VIAL ONE (13:26)
[2021-01-22 13:48] LABS: ABG Base Excess 5 mEq/L (-2 to 3); ABG Chloride 98 mEq/L (98-107); ABG Glucose 202 mg/dL (60-95); ABG HCO3 27 mEq/L (21-27); ABG Ionized Calcium 1.11 mmol/L (1.15-1.35); ABG Oxygen Saturation 100 % (95-98); ABG PCO2 31 mmHg (35-45); ABG PH 7.54 pH Units (7.32-7.45); ABG PO2 148 mmHg (85-104); ABG TCO2 28 mEq/L (20-26)
[2021-01-22] MEDS ORDERED: niCARdipine 40 MG/200 ML MLS IVC ONE (14:18)
[2021-01-22] MEDS ORDERED: Insulin Human Regular 4 UNIT in 0.9 % Sodium Chloride 10 ML IV ONE (15:07)
[2021-01-22] MEDS ORDERED: Insulin Regular, Human 100 UNIT/ML ONE (15:17)
[2021-01-22] MEDS ORDERED: Albumin Human 5% 25.0 GM/500 ML IV.SOLN ONE (15:37)
[2021-01-22 16:10] LABS: ABG Base Excess 2 mEq/L (-2 to 3); ABG Chloride 100 mEq/L (98-107); ABG Glucose 186 mg/dL (60-95); ABG HCO3 26 mEq/L (21-27); ABG Ionized Calcium 1.13 mmol/L (1.15-1.35); ABG Oxygen Saturation 96 % (95-98); ABG PCO2 39 mmHg (35-45); ABG PH 7.44 pH Units (7.32-7.45); ABG PO2 81 mmHg (85-104); ABG TCO2 27 mEq/L (20-26)
[2021-01-22] MEDS ORDERED: *HR* HYDROMORPHONE 2 MG/ML VIAL ONE (17:54)
[2021-01-22] MEDS ORDERED: Sugammadex Sodium 200 MG/2 ML VIAL IV ONE (18:00)
[2021-01-22] MEDS ORDERED: *HR* Labetalol 20 MG/4 ML SYRINGE IVP ONE (19:43)
[2021-01-22] MEDS ORDERED: Nitroglycerin 0.4 MG TAB.SUBL SL PRN (19:46)
[2021-01-22] MEDS ORDERED: Naloxone 0.4 MG/ML INJ IVP PRN ×2 (19:46→20:59)
[2021-01-22] MEDS ORDERED: Albuterol 2.5 MG/3 ML NEBULIZER IH PRN ×2 (19:46→20:59)
[2021-01-22] MEDS ORDERED: D5% in Water 1,000 ML IVC PRN (20:59)
[2021-01-22] MEDS ORDERED: Dextrose Gel 15 GM/37.5 ML TUBE PO PRN ×2 (20:59)
[2021-01-22] MEDS ORDERED: Melatonin 3 MG TABLET PO PRN (20:59)
[2021-01-22] MEDS ORDERED: polyethylene glycoL 3350 17 GM POWD.PACK PO PRN (20:59)
[2021-01-22] MEDS ORDERED: *HR* Metoprolol 5 MG/5 ML VIAL IVP PRN (20:59)
[2021-01-22] MEDS ORDERED: *HR* Dextrose 50 % in Water (Syg) 50 ML SYRINGE IVP PRN (20:59)
[2021-01-23] MEDS ORDERED: Insulin LISPRO 300 UNITS/3 ML VIAL SUBQ SCH
[2021-01-23] MEDS: Sennosides/Docusate Sodium TABLET PO SCH ×3 (00:23→22:27)
[2021-01-23] MEDS: CeFAZolin 2 GM/120 ML BAG IVPB SCH ×3 (00:24→16:41)
[2021-01-23] MEDS: Insulin LISPRO 300 UNITS/3 ML VIAL SUBQ SCH ×5 (01:37→20:35)
[2021-01-23 05:53] LABS: Basophils % 0.2 %; Eosinophils % 0.3 %; Hematocrit 25.9 % (35.3-44.9); Hemoglobin 8.4 g/dL (11.5-15.4); Immature Granulocytes % 0.4 % (0-4); Mean Corpuscular HGB Conc 32.4 g/dL (31.6-35.5); Mean Corpuscular Hemoglobin 29.7 pg (28.0-33.3); Mean Corpuscular Volume 91.5 fL (83.0-100.0); Mean Platelet Volume 10.6 fL (9.4-12.4); Monocytes # 1.2 K/mcL (0.0-1.3); Monocytes % 11.8 %; Nucleated Red Blood Cells 0.5 /100 WBC (0); Platelet Count 185 K/mcL (140-400); Red Blood Count 2.83 M/mcL (3.82-4.97); Red Cell Distribution Width 14.9 % (11.5-14.5); Segmented Neutrophils % 77.3 %
[2021-01-23 05:54] LABS: White Blood Count 10.3 K/mcL (4.3-11.1)
[2021-01-23 06:18] LABS: BUN/Creatinine Ratio 14 (6-26); Blood Urea Nitrogen 12 mg/dL (8-23); Calcium 8.4 mg/dL (8.6-10.3); Carbon Dioxide 25 mEq/L (23-29); Chloride 101 mEq/L (98-107); Glucose 167 mg/dL (70-105); Magnesium 1.6 mg/dL (1.6-2.6); Osmolality,Calculated 284 (280-300); Phosphorous 2.5 mg/dL (2.7-4.5); Potassium 3.6 mEq/L (3.5-5.1); Sodium 135 mEq/L (136-145); eGFR For African Americans > 60 (> 60); eGFR For Non-African Americans > 60 (> 60)
[2021-01-23] MEDS ORDERED: Ipratropium/Albuterol Neb 3 ML IH PRN (06:46)
[2021-01-23] MEDS: Budesonide/Formoterol 160/4.5 1 PUFF INH IH SCH ×2 (08:47→22:28)
[2021-01-23] MEDS: Furosemide 20 MG TABLET PO SCH (08:47)
[2021-01-23] MEDS: *HR* LORazepam 0.5 MG TABLET PO SCH (17:57)
[2021-01-23] MEDS ORDERED: Acetaminophen 325 MG TABLET PO PRN (20:41)
[2021-01-24] MEDS: CeFAZolin 2 GM/120 ML BAG IVPB SCH ×3 (01:16→15:14)
[2021-01-24 05:05] LABS: Basophils % 0.1 %; Eosinophils % 0.3 %; Hematocrit 24.9 % (35.3-44.9); Hemoglobin 7.6 g/dL (11.5-15.4); Immature Granulocytes % 0.9 % (0-4); Lymphocytes # 0.9 K/mcL (0.6-4.6); Lymphocytes % 9.5 %; Mean Corpuscular HGB Conc 30.5 g/dL (31.6-35.5); Mean Corpuscular Hemoglobin 28.6 pg (28.0-33.3); Mean Corpuscular Volume 93.6 fL (83.0-100.0); Mean Platelet Volume 10.2 fL (9.4-12.4); Monocytes # 1.1 K/mcL (0.0-1.3); Monocytes % 11.4 %; Neutrophils # 7.3 K/mcL (1.6-8.9); Nucleated Red Blood Cells 0.3 /100 WBC (0); Platelet Count 174 K/mcL (140-400); Red Blood Count 2.66 M/mcL (3.82-4.97); Red Cell Distribution Width 15.8 % (11.5-14.5); Segmented Neutrophils % 77.8 %; White Blood Count 9.4 K/mcL (4.3-11.1)
[2021-01-24 05:08] LABS: BUN/Creatinine Ratio 12 (6-26); Blood Urea Nitrogen 11 mg/dL (8-23); Calcium 8.7 mg/dL (8.6-10.3); Carbon Dioxide 29 mEq/L (23-29); Chloride 98 mEq/L (98-107); Glucose 150 mg/dL (70-105); Magnesium 1.7 mg/dL (1.6-2.6); Osmolality,Calculated 282 (280-300); Phosphorous 2.3 mg/dL (2.7-4.5); Potassium 3.3 mEq/L (3.5-5.1); Sodium 135 mEq/L (136-145); eGFR For African Americans > 60 (> 60); eGFR For Non-African Americans > 60 (> 60)
[2021-01-24] MEDS ORDERED: Potassium Phosphate 44 MEQ in 0.9 % Sodium Chloride 250 ML IVPB ONE (07:20)
[2021-01-24] MEDS: Sennosides/Docusate Sodium TABLET PO SCH ×2 (09:00→22:24)
[2021-01-24] MEDS: Insulin LISPRO 300 UNITS/3 ML VIAL SUBQ SCH ×4 (09:01→22:18)
[2021-01-24] MEDS: Budesonide/Formoterol 160/4.5 1 PUFF INH IH SCH ×2 (09:01→22:24)
[2021-01-24] MEDS: Furosemide 20 MG TABLET PO SCH (09:01)
[2021-01-24] MEDS: *HR* LORazepam 0.5 MG TABLET PO SCH (17:22)
[2021-01-25] MEDS: CeFAZolin 2 GM/120 ML BAG IVPB SCH ×3 (00:18→17:34)
[2021-01-25 04:33] LABS: Hematocrit 23.9 % (35.3-44.9); Hemoglobin 7.4 g/dL (11.5-15.4)
[2021-01-25 04:57] LABS: BUN/Creatinine Ratio 14 (6-26); Blood Urea Nitrogen 12 mg/dL (8-23); Calcium 8.6 mg/dL (8.6-10.3); Carbon Dioxide 31 mEq/L (23-29); Chloride 96 mEq/L (98-107); Glucose 140 mg/dL (70-105); Magnesium 1.7 mg/dL (1.6-2.6); Osmolality,Calculated 280 (280-300); Potassium 3.4 mEq/L (3.5-5.1); Sodium 134 mEq/L (136-145); eGFR For African Americans > 60 (> 60); eGFR For Non-African Americans > 60 (> 60)
[2021-01-25] MEDS: Furosemide 20 MG TABLET PO SCH (08:36)
[2021-01-25] MEDS: Sennosides/Docusate Sodium TABLET PO SCH ×2 (08:36→22:41)
[2021-01-25] MEDS: Budesonide/Formoterol 160/4.5 1 PUFF INH IH SCH ×2 (08:38→22:42)
[2021-01-25] MEDS: Insulin LISPRO 300 UNITS/3 ML VIAL SUBQ SCH ×4 (08:38→22:42)
[2021-01-25] MEDS ORDERED: *HR* Heparin 5,000 UNIT/ML VIAL IVP PRN ×2 (09:43)
[2021-01-25] MEDS ORDERED: Heparin 25,000UNIT/250ML 1/2NS 25,000 UNIT/250 ML IV.SOLN IVC SCH (09:45)
[2021-01-25 12:23] LABS: Heparin anti-factor XA UFH < 0.04 IU/mL (0.30-0.70); INR 1.4; Prothrombin Time 15.6 Seconds (9.4-12.1)
[2021-01-25 12:26] LABS: Activated Partial Thrombo Time 25.1 Seconds (26.0-36.0)
[2021-01-25 13:01] LABS: Hemoglobin 7.3 g/dL (11.5-15.4); Mean Corpuscular HGB Conc 31.7 g/dL (31.6-35.5); Mean Corpuscular Hemoglobin 29.9 pg (28.0-33.3); Mean Corpuscular Volume 94.3 fL (83.0-100.0); Mean Platelet Volume 10.3 fL (9.4-12.4); Platelet Count 183 K/mcL (140-400); Red Blood Count 2.44 M/mcL (3.82-4.97); Red Cell Distribution Width 15.9 % (11.5-14.5); White Blood Count 7.3 K/mcL (4.3-11.1)
[2021-01-25] MEDS: Heparin 25,000UNIT/250ML 1/2NS 25,000 UNIT/250 ML IV.SOLN IVC SCH (13:12)
[2021-01-25] MEDS: *HR* LORazepam 0.5 MG TABLET PO SCH (17:34)
[2021-01-26] MEDS: CeFAZolin 2 GM/120 ML BAG IVPB SCH ×3 (00:57→16:28)
[2021-01-26 05:01] LABS: Hematocrit 24.6 % (35.3-44.9); Hemoglobin 7.5 g/dL (11.5-15.4)
[2021-01-26 05:26] LABS: BUN/Creatinine Ratio 15 (6-26); Blood Urea Nitrogen 11 mg/dL (8-23); Calcium 8.3 mg/dL (8.6-10.3); Carbon Dioxide 29 mEq/L (23-29); Chloride 97 mEq/L (98-107); Glucose 171 mg/dL (70-105); Magnesium 1.7 mg/dL (1.6-2.6); Osmolality,Calculated 277 (280-300); Phosphorous 1.9 mg/dL (2.7-4.5); Potassium 3.2 mEq/L (3.5-5.1); Sodium 132 mEq/L (136-145); eGFR For African Americans > 60 (> 60); eGFR For Non-African Americans > 60 (> 60)
[2021-01-26] MEDS ORDERED: Potassium Phosphate 44 MEQ in 0.9 % Sodium Chloride 250 ML IVPB ONE (07:32)
[2021-01-26] MEDS: Heparin 25,000UNIT/250ML 1/2NS 25,000 UNIT/250 ML IV.SOLN IVC SCH (09:57)
[2021-01-26] MEDS: Sennosides/Docusate Sodium TABLET PO SCH ×2 (09:58→20:32)
[2021-01-26] MEDS: Furosemide 20 MG TABLET PO SCH (09:58)
[2021-01-26] MEDS: Insulin LISPRO 300 UNITS/3 ML VIAL SUBQ SCH ×4 (10:02→20:31)
[2021-01-26] MEDS: Budesonide/Formoterol 160/4.5 1 PUFF INH IH SCH ×2 (10:14→20:33)
[2021-01-26] MEDS: Apixaban 5 MG TABLET PO SCH ×2 (13:34→20:32)
[2021-01-26] MEDS: *HR* LORazepam 0.5 MG TABLET PO SCH (16:26)
[2021-01-27] MEDS: CeFAZolin 2 GM/120 ML BAG IVPB SCH ×3 (00:06→16:58)
[2021-01-27 06:08] LABS: Hematocrit 25.6 % (35.3-44.9); Hemoglobin 7.9 g/dL (11.5-15.4)
[2021-01-27 06:28] LABS: BUN/Creatinine Ratio 11 (6-26); Blood Urea Nitrogen 9 mg/dL (8-23); Calcium 8.5 mg/dL (8.6-10.3); Carbon Dioxide 31 mEq/L (23-29); Chloride 95 mEq/L (98-107); Glucose 122 mg/dL (70-105); Magnesium 1.8 mg/dL (1.6-2.6); Osmolality,Calculated 276 (280-300); Phosphorous 2.3 mg/dL (2.7-4.5); Potassium 3.2 mEq/L (3.5-5.1); Sodium 133 mEq/L (136-145); eGFR For African Americans > 60 (> 60); eGFR For Non-African Americans > 60 (> 60)
[2021-01-27] MEDS: Insulin LISPRO 300 UNITS/3 ML VIAL SUBQ SCH ×4 (08:19→22:37)
[2021-01-27] MEDS: Apixaban 5 MG TABLET PO SCH ×2 (08:25→22:37)
[2021-01-27] MEDS: Furosemide 20 MG TABLET PO SCH (08:25)
[2021-01-27] MEDS: Sennosides/Docusate Sodium TABLET PO SCH ×2 (08:25→22:37)
[2021-01-27] MEDS: Budesonide/Formoterol 160/4.5 1 PUFF INH IH SCH ×2 (08:40→22:37)
[2021-01-27 16:28] LABS: Adenovirus Not Detected (Not Detect); Bordetella Pertussis Not Detected (Not Detect); Chlamydophila pneumoniae Not Detected (Not Detect); Coronavirus 229E Not Detected (Not Detect); Coronavirus HKU1 Not Detected (Not Detect); Coronavirus NL63 Not Detected (Not Detect); Coronavirus OC43 Not Detected (Not Detect); Human Metapneumovirus Not Detected (Not Detect); Human Rhinovirus/Enterovirus Not Detected (Not Detect); Influenza A Subtype 2009 H1 Not Detected (Not Detect); Influenza B Not Detected (Not Detect); Mycoplasma pneumoniae Not Detected (Not Detect); Parainfluenza Virus 1 Not Detected (Not Detect); Parainfluenza Virus 2 Not Detected (Not Detect); Parainfluenza Virus 3 Not Detected (Not Detect); Parainfluenza Virus 4 Not Detected (Not Detect); Respiratory Syncytial Virus Not Detected (Not Detect); SARS-CoV-2 Not Detected (Not Detect)
[2021-01-27] MEDS ORDERED: FLU Vac QV 21-22 (6Month+)/PF 0.5 ML SYRINGE IM ONE (16:57)
[2021-01-27] MEDS: *HR* LORazepam 0.5 MG TABLET PO SCH (17:02)
[2021-01-28 07:31] VITALS: BP 114/73; PULSE 98; TEMP 98.4; O2SAT 92
[2021-01-28] MEDS: Apixaban 5 MG TABLET PO SCH (08:33)
[2021-01-28] MEDS: Furosemide 20 MG TABLET PO SCH (08:33)
[2021-01-28] MEDS: Sennosides/Docusate Sodium TABLET PO SCH (08:33)
[2021-01-28] MEDS: Budesonide/Formoterol 160/4.5 1 PUFF INH IH SCH (08:35)
[2021-01-28] MEDS ORDERED: FLU Vac QV 21-22 (6Month+)/PF 0.5 ML SYRINGE IM ONE (10:53)
[2021-01-28] MEDS: Insulin LISPRO 300 UNITS/3 ML VIAL SUBQ SCH (11:23)
== END 2021-01-28 12:00 | DRG 522 ==
LOC: 4WAOSI → SUATTDRO 01-16 17:18 → EDSTATUS 01-17 12:00 → SUATTDRO 01-17 14:08 → ICNU 01-17 21:07 → 3BNU 01-18 12:26 → 4WAOSI 01-22 16:07
PROVIDERS: ADMIT Orthopaedic Surgery; ATTEND Internal Medicine